=== PATIENT | female | born 1950 | race Caucasian/White ===

== ENCOUNTER → 2016-11-25 | Outpatient (REF) | payer OTHER ==
[2016-11-25 18:15] LABS: BASO % 0.4 % (0.0-1.0); EOS # 0.1 K/mm3 (0.0-0.50); EOS % 1.5 % (0.0-3.0); LARGE UNSTAINED CELL # 0.2 K/mm3 (0.0-0.4); LARGE UNSTAINED CELL % 1.9 % (0.0-4.0); LYMPH % 23.9 % (24.0-44.0); MEAN CORPUSCULAR HEMOGLOBIN 27.5 pg (27.0-33.0); MEAN CORPUSCULAR HGB CONC 33.2 g/dl (32.0-36.5); MONO # 0.4 K/mm3 (0.0-0.8); MONO % 5.4 % (0.0-5.0); NEUTROPHILS # 5.5 K/mm3 (1.8-7.7); PLATELET COUNT, AUTOMATED 286 k/mm3 (150-450); RED CELL DISTRIBUTION WIDTH 13.2 % (11.5-14.5); WHITE BLOOD COUNT 8.2 K/mm3 (4.0-10.0)
[2016-11-25 18:41] LABS: ALBUMIN 3.7 GM/DL (3.2-5.2); ALBUMIN/GLOBULIN RATIO 1.16 (1.00-1.93); ALKALINE PHOSPHATASE 69 U/L (45-117); ALT/SGPT 28 U/L (12-78); ANION GAP 9 MEQ/L (8-16); AST/SGOT 13 U/L (15-37); BILIRUBIN,TOTAL 0.3 MG/DL (0.2-1.0); BLOOD UREA NITROGEN 16 MG/DL (7-18); CALCIUM LEVEL 9.1 MG/DL (8.8-10.2); CARBON DIOXIDE LEVEL 28 MEQ/L (21-32); CHLORIDE LEVEL 104 MEQ/L (98-107); CREATININE FOR GFR 0.86 MG/DL (0.55-1.02); GLOMERULAR FILTRATION RATE > 60.0 (>45); GLUCOSE, FASTING 85 MG/DL (80-110); POTASSIUM SERUM 3.9 MEQ/L (3.5-5.1); SODIUM LEVEL 141 MEQ/L (136-145); TOTAL PROTEIN 6.9 GM/DL (6.4-8.2)
[2016-11-25 18:57] LABS: ERYTHROCYTE SEDIMENTATION RATE 24 mm/hr (0-30)
[2016-11-27 14:00] LABS: ALBUMIN 3.86 GM/DL (3.29-5.55); ALBUMIN % 55.9 % (55.8-66.1); GAMMA GLOBULIN % 13.9 % (11.1-18.8)
[2016-11-28 00:07] LABS: Lyme Disease IgG/IgM Antibodie <0.91 ISR (0.00-0.90); Lyme Disease IgM Ab Quantitati <0.80 index (0.00-0.79)
== END ==
LOC: M LABDRAW1 16:11
PROVIDERS: ATTEND Internal Medicine Rheumatology
DX: Z51.81 Encounter for therapeutic drug level monitoring (principal); Z79.899 Other long term (current) drug therapy; R53.83 Other fatigue; M05.79 Rheumatoid arthritis with rheumatoid factor of multiple sites without organ or systems involvement; D47.2 Monoclonal gammopathy

== ENCOUNTER → 2016-12-08 | Outpatient (REF) | payer OTHER | LOC: M SFHCPLAZ 11:03 | PROVIDERS: ATTEND Nurse Practitioner Adult Health | DX: R73.02 Impaired glucose tolerance (oral) (principal); E03.9 Hypothyroidism, unspecified; E55.9 Vitamin D deficiency, unspecified ==

== ENCOUNTER → 2017-03-09 | Outpatient (REF) | payer OTHER ==
[2017-03-09 11:52] LABS: ALBUMIN 3.3 GM/DL (3.2-5.2); ALKALINE PHOSPHATASE 66 U/L (45-117); ALT/SGPT 30 U/L (12-78); ANION GAP 8 MEQ/L (8-16); AST/SGOT 13 U/L (15-37); BILIRUBIN,TOTAL 0.3 MG/DL (0.2-1.0); BLOOD UREA NITROGEN 16 MG/DL (7-18); CALCIUM LEVEL 8.7 MG/DL (8.8-10.2); CARBON DIOXIDE LEVEL 29 MEQ/L (21-32); CHLORIDE LEVEL 105 MEQ/L (98-107); CREATININE FOR GFR 0.75 MG/DL (0.55-1.02); GLOMERULAR FILTRATION RATE > 60.0 (>45); GLUCOSE, FASTING 103 MG/DL (80-110); POTASSIUM SERUM 4.6 MEQ/L (3.5-5.1); SODIUM LEVEL 142 MEQ/L (136-145); TOTAL PROTEIN 6.6 GM/DL (6.4-8.2)
== END ==
LOC: M SFHCPLAZ 08:17
PROVIDERS: ATTEND Nurse Practitioner Adult Health
DX: R73.02 Impaired glucose tolerance (oral) (principal); E03.9 Hypothyroidism, unspecified; E55.9 Vitamin D deficiency, unspecified

== ENCOUNTER → 2017-05-05 | Outpatient (REF) | payer OTHER ==
[2017-05-05 14:36] LABS: BASO % 0.4 % (0.0-1.0); EOS # 0.2 K/mm3 (0.0-0.50); EOS % 2.9 % (0.0-3.0); LARGE UNSTAINED CELL # 0.1 K/mm3 (0.0-0.4); LYMPH # 2.1 K/mm3 (1.5-4.5); LYMPH % 26.1 % (24.0-44.0); MEAN CORPUSCULAR HEMOGLOBIN 28.7 pg (27.0-33.0); MEAN CORPUSCULAR HGB CONC 32.8 g/dl (32.0-36.5); MEAN CORPUSCULAR VOLUME 87.5 fl (80.0-96.0); MONO # 0.5 K/mm3 (0.0-0.8); MONO % 5.9 % (0.0-5.0); NEUTROPHILS % 63.7 % (36.0-66.0); PLATELET COUNT, AUTOMATED 260 k/mm3 (150-450); RED CELL DISTRIBUTION WIDTH 13.1 % (11.5-14.5); WHITE BLOOD COUNT 7.8 K/mm3 (4.0-10.0)
[2017-05-05 15:28] LABS: ALBUMIN 3.5 GM/DL (3.2-5.2); ALBUMIN/GLOBULIN RATIO 1.06 (1.00-1.93); ALKALINE PHOSPHATASE 65 U/L (45-117); ALT/SGPT 25 U/L (12-78); ANION GAP 8 MEQ/L (8-16); AST/SGOT 10 U/L (15-37); BILIRUBIN,TOTAL 0.3 MG/DL (0.2-1.0); BLOOD UREA NITROGEN 18 MG/DL (7-18); CALCIUM LEVEL 8.9 MG/DL (8.8-10.2); CARBON DIOXIDE LEVEL 30 MEQ/L (21-32); CHLORIDE LEVEL 104 MEQ/L (98-107); CREATININE FOR GFR 0.75 MG/DL (0.55-1.02); GLOMERULAR FILTRATION RATE > 60.0 (>45); GLUCOSE, FASTING 69 MG/DL (80-110); POTASSIUM SERUM 4.4 MEQ/L (3.5-5.1); SODIUM LEVEL 142 MEQ/L (136-145); TOTAL PROTEIN 6.8 GM/DL (6.4-8.2)
[2017-05-05 15:51] LABS: ERYTHROCYTE SEDIMENTATION RATE 26 mm/hr (0-30)
== END ==
LOC: M LABDRAWP 14:05
PROVIDERS: ATTEND Internal Medicine Rheumatology
DX: Z51.81 Encounter for therapeutic drug level monitoring (principal); Z79.899 Other long term (current) drug therapy; M05.79 Rheumatoid arthritis with rheumatoid factor of multiple sites without organ or systems involvement

== ENCOUNTER → 2017-06-04 | Outpatient (REF) | payer OTHER ==
[~2017-06-04] MED LIST: ASPI1TAB PO; FISH5CAP PO; FOLI1TAB4 PO; LEVO100T5 PO; METF750T PO; METH2.5TA PO; OMEP20CA3 PO; PROBCAP4 PO; VITA1CAP40 PO
[2017-06-04 14:37] LABS: BASO % 0.3 % (0.0-1.0); EOS # 0.5 K/mm3 (0.0-0.50); EOS % 4.1 % (0.0-3.0); LARGE UNSTAINED CELL # 0.1 K/mm3 (0.0-0.4); LARGE UNSTAINED CELL % 0.7 % (0.0-4.0); LYMPH # 1.2 K/mm3 (1.5-4.5); LYMPH % 9.6 % (24.0-44.0); MEAN CORPUSCULAR HEMOGLOBIN 28.6 pg (27.0-33.0); MEAN CORPUSCULAR HGB CONC 32.5 g/dl (32.0-36.5); MEAN CORPUSCULAR VOLUME 87.8 fl (80.0-96.0); MONO # 0.6 K/mm3 (0.0-0.8); MONO % 4.5 % (0.0-5.0); NEUTROPHILS # 9.7 K/mm3 (1.8-7.7); NEUTROPHILS % 80.7 % (36.0-66.0); PLATELET COUNT, AUTOMATED 316 k/mm3 (150-450); RED CELL DISTRIBUTION WIDTH 14.2 % (11.5-14.5)
[2017-06-04 15:06] LABS: ALBUMIN 3.4 GM/DL (3.2-5.2); ALT/SGPT 27 U/L (12-78); CREATININE FOR GFR 0.85 MG/DL (0.55-1.02); GLOMERULAR FILTRATION RATE > 60.0 (>45)
== END ==
LOC: M LABDRAWP 14:03
PROVIDERS: ATTEND Internal Medicine Rheumatology
DX: Z51.81 Encounter for therapeutic drug level monitoring (principal); Z79.899 Other long term (current) drug therapy; M05.79 Rheumatoid arthritis with rheumatoid factor of multiple sites without organ or systems involvement

== ENCOUNTER → 2017-06-04 | Outpatient (REF) | payer OTHER ==
[2017-06-04 15:10] LABS: ALBUMIN 3.4 GM/DL (3.2-5.2); ALBUMIN/GLOBULIN RATIO 0.89 (1.00-1.93); ALKALINE PHOSPHATASE 72 U/L (45-117); ALT/SGPT 25 U/L (12-78); ANION GAP 6 MEQ/L (8-16); AST/SGOT 9 U/L (15-37); BILIRUBIN,TOTAL 0.3 MG/DL (0.2-1.0); BLOOD UREA NITROGEN 16 MG/DL (7-18); CALCIUM LEVEL 9.5 MG/DL (8.8-10.2); CARBON DIOXIDE LEVEL 28 MEQ/L (21-32); CHLORIDE LEVEL 104 MEQ/L (98-107); CREATININE FOR GFR 0.83 MG/DL (0.55-1.02); GLOMERULAR FILTRATION RATE > 60.0 (>45); GLUCOSE, FASTING 115 MG/DL (80-110); POTASSIUM SERUM 4.5 MEQ/L (3.5-5.1); SODIUM LEVEL 138 MEQ/L (136-145); TOTAL PROTEIN 7.2 GM/DL (6.4-8.2)
== END ==
LOC: M SFHCPLAZ 08:36
PROVIDERS: ATTEND Nurse Practitioner Adult Health
DX: Z51.81 Encounter for therapeutic drug level monitoring (principal); Z79.899 Other long term (current) drug therapy; M05.9 Rheumatoid arthritis with rheumatoid factor, unspecified; R73.02 Impaired glucose tolerance (oral); E03.9 Hypothyroidism, unspecified

== ENCOUNTER → 2017-07-06 | Outpatient (CLI) | payer OTHER ==
[2017-07-06 21:32] LABS: ALBUMIN 3.6 GM/DL (3.2-5.2); ALT/SGPT 25 U/L (12-78); BASO % 0.3 % (0.0-1.0); CREATININE FOR GFR 0.72 MG/DL (0.55-1.02); EOS # 0.3 K/mm3 (0.0-0.50); EOS % 3.1 % (0.0-3.0); GLOMERULAR FILTRATION RATE > 60.0 (>45); LARGE UNSTAINED CELL # 0.1 K/mm3 (0.0-0.4); LARGE UNSTAINED CELL % 1.3 % (0.0-4.0); LYMPH # 2.4 K/mm3 (1.5-4.5); LYMPH % 24.6 % (24.0-44.0); MEAN CORPUSCULAR HEMOGLOBIN 28.4 pg (27.0-33.0); MEAN CORPUSCULAR HGB CONC 31.8 g/dl (32.0-36.5); MEAN CORPUSCULAR VOLUME 89.4 fl (80.0-96.0); MONO # 0.6 K/mm3 (0.0-0.8); MONO % 5.9 % (0.0-5.0); NEUTROPHILS % 64.8 % (36.0-66.0); PLATELET COUNT, AUTOMATED 294 k/mm3 (150-450); RED CELL DISTRIBUTION WIDTH 15.6 % (11.5-14.5); WHITE BLOOD COUNT 9.3 K/mm3 (4.0-10.0)
== END ==
LOC: M LRY 16:19
PROVIDERS: ATTEND Internal Medicine Rheumatology
DX: M05.79 Rheumatoid arthritis with rheumatoid factor of multiple sites without organ or systems involvement (principal); Z79.899 Other long term (current) drug therapy

== ENCOUNTER → 2017-08-03 | Outpatient (CLI) | payer OTHER ==
[2017-08-03 21:02] LABS: BASO % 0.3 % (0.0-1.0); EOS # 0.3 K/mm3 (0.0-0.50); EOS % 2.8 % (0.0-3.0); LARGE UNSTAINED CELL # 0.2 K/mm3 (0.0-0.4); LARGE UNSTAINED CELL % 2.1 % (0.0-4.0); LYMPH # 2.5 K/mm3 (1.5-4.5); LYMPH % 27.1 % (24.0-44.0); MEAN CORPUSCULAR HEMOGLOBIN 28.9 pg (27.0-33.0); MEAN CORPUSCULAR HGB CONC 32.2 g/dl (32.0-36.5); MEAN CORPUSCULAR VOLUME 89.7 fl (80.0-96.0); MONO # 0.5 K/mm3 (0.0-0.8); MONO % 5.7 % (0.0-5.0); NEUTROPHILS # 5.6 K/mm3 (1.8-7.7); NEUTROPHILS % 61.9 % (36.0-66.0); PLATELET COUNT, AUTOMATED 331 k/mm3 (150-450); RED CELL DISTRIBUTION WIDTH 15.5 % (11.5-14.5); WHITE BLOOD COUNT 9.1 K/mm3 (4.0-10.0)
[2017-08-03 21:07] LABS: ALBUMIN 3.6 GM/DL (3.2-5.2); ALT/SGPT 28 U/L (12-78); CREATININE FOR GFR 0.64 MG/DL (0.55-1.02); GLOMERULAR FILTRATION RATE > 60.0 (>45)
== END ==
LOC: M LRY 16:19
PROVIDERS: ATTEND Internal Medicine Rheumatology
DX: Z51.81 Encounter for therapeutic drug level monitoring (principal); Z79.899 Other long term (current) drug therapy; M05.79 Rheumatoid arthritis with rheumatoid factor of multiple sites without organ or systems involvement

== ENCOUNTER → 2017-09-14 | Outpatient (CLI) | payer OTHER ==
[2017-09-14 20:27] LABS: ALBUMIN 3.6 GM/DL (3.2-5.2); ALT/SGPT 33 U/L (12-78); CREATININE FOR GFR 0.71 MG/DL (0.55-1.02); GLOMERULAR FILTRATION RATE > 60.0 (>45)
[2017-09-14 20:46] LABS: BASO # 0.1 10^3/uL (0.0-0.2); BASO % 0.5 % (0.0-1.0); EOS # 0.2 10^3/uL (0.0-0.50); EOS % 2.3 % (0.0-3.0); IMMATURE GRANULOCYTE % 0.3 % (0-0); LYMPH # 2.4 10^3/uL (1.5-4.5); LYMPH % 23.3 % (24.0-44.0); MEAN CORPUSCULAR HEMOGLOBIN 28.6 pg (27.0-33.0); MEAN CORPUSCULAR HGB CONC 31.1 g/dl (32.0-36.5); MEAN CORPUSCULAR VOLUME 91.9 fl (80.0-96.0); MONO # 0.9 10^3/uL (0.0-0.8); MONO % 8.3 % (0.0-5.0); NEUTROPHILS # 6.8 10^3/uL (1.8-7.7); NEUTROPHILS % 65.3 % (36.0-66.0); PLATELET COUNT, AUTOMATED 323 10^3/uL (150-450); RED CELL DISTRIBUTION WIDTH 15.1 % (11.5-14.5); WHITE BLOOD COUNT 10.4 10^3/uL (4.0-10.0)
== END ==
LOC: M LRY 16:21
PROVIDERS: ATTEND Internal Medicine Rheumatology
DX: Z51.81 Encounter for therapeutic drug level monitoring (principal); Z79.899 Other long term (current) drug therapy; M05.79 Rheumatoid arthritis with rheumatoid factor of multiple sites without organ or systems involvement

== ENCOUNTER 2017-10-08 07:36 | Inpatient (IN) | payer OTHER, MEDICARE ==
[2017-09-24 11:33] VITALS: BP 130/80
--- NOTE | 2017-09-30 12:24 | HPE ---
DATE OF ADMISSION: 10/08/2017 HISTORY OF PRESENT ILLNESS: This is a pleasant female with continuing symptomatic right hip osteoarthritis. She has consented for right total hip arthroplasty per Dr. Hayder Asher. Medical optimization per Dr. Tsang, and x-rays are consistent with advanced osteoarthritis. ALLERGIES: PENICILLIN caused her some breathing issues when she was young, and in addition, BEE STINGS. MEDICATIONS: List includes: - omeprazole 20 mg - hydroxychloroquine sulfate 200 mg - levothyroxine sodium 100 mcg - aspirin low 81 mg - vitamin D 50,000 units - Metformin HCl ER 750 mg - fish oil burpless 1200 mg - Probiotic daily MEDICAL PROBLEM LIST: Includes symptomatic right hip osteoarthritis, gastroesophageal reflux disease. Hypothyroidism. FAMILY HISTORY: Positive for heart disease, arthritis, hypercholesteremia, cancer and diabetes. SOCIAL HISTORY: She is a former smoker. She denies ethanol intake or illicit drugs. REVIEW OF SYSTEMS: Denies chest pain, shortness of breath, dyspnea on exertion, fever, chills, malaise, upper respiratory or urinary tract symptoms. PHYSICAL EXAMINATION: Height 5, 4. Weight 223. Temperature 98.6. Blood pressure (BP) 158/78. This is a pleasant, overweight white female in no acute distress, alert and oriented times three. Mood and affect are appropriate. She is ambulating with favoring left lower extremity and antalgia about the right. Right hip range of motion is limited and irritable throughout range of motion. Bowel sounds times four, soft, nontender. Chest rises symmetrically, regular rate and rhythm. Lungs clear to auscultation. Neck supple. Negative jugular venous distention (JVD) or bruits. Normocephalic. Labs were reviewed. There was Corynebacterium noted on urine culture, and therefore, we proceeded to prescribe her prophylactic Hibiclens Bactroban wash. Nasal sinus culture was normal kiara present. Urine culture showed Corynebacterium bacteria, colony count 75,000. Remaining labs relatively unremarkable. ESR 43. Chest x-ray showed no acute cardiopulmonary process. EKG showed sinus rhythm with occasional ventricular premature complexes with occasional supraventricular premature complexes as read by Dr. Barroso. Consent was updated. IMPRESSION: 1. Continuing symptomatic right hip osteoarthritis. 2. Patient consented for right total hip arthroplasty per Dr. Hayder Asher. 3. Medical optimization per Dr. Ahsan Tsang. 4. On-call to operating room (OR) 600 mg intravenous (IV) clindamycin per prior history of PENICILLIN ALLERGY. 5. Sequential compressive device (SCD) and thromboembolic deterrent (JENNI) in OR .
[~2017-10-08] VITALS: Ht 165.1 cm; Wt 100.4 kg
[2017-10-08] VITALS (9 sets, daily range): BP systolic 155–186; BP diastolic 60–75; O2SAT 94–96
[2017-10-08] MEDS ORDERED: LR 1,000 ML IV SCH ×3 (07:45→11:45)
[2017-10-08] MEDS ORDERED: CLINDAMYCIN 600 MG in APPROPRIATE DILUENT 1 EA IV ONE (08:00)
[2017-10-08] MEDS ORDERED: fentaNYL 100 MCG/2 ML INJECTION (J3010) As Ordered ONE (08:28)
[2017-10-08] MEDS ORDERED: PROPOFOL 200 MG/20 ML VIAL As Ordered ONE ×2 (08:28→10:55)
[2017-10-08] MEDS ORDERED: LIDOCAINE 2% INJ 100 MG/5 ML SDV (FOR ANES.) As Ordered ONE (08:28)
[2017-10-08] MEDS ORDERED: MIDAZOLAM INJ 2 MG/2 ML VIAL (J2250) As Ordered ONE (08:28)
[2017-10-08] MEDS ORDERED: CLINDAMYCIN INJ 900MG/6ML VIAL As Ordered ONE (08:54)
[2017-10-08] MEDS ORDERED: TRANEXAMIC ACID 100 MG/ML 10ML VIAL As Ordered ONE (08:54)
[2017-10-08] MEDS ORDERED: EPINEPHrine INJ 1 MG/ML 1ML AMP As Ordered ONE (08:54)
--- NOTE | 2017-10-08 10:22 | HPE ---
DATE OF ADMISSION: 10/08/2017 The patient seen, examined. She wished to go ahead with the right total hip arthroplasty. She understands the nature this the risks of bleeding, infection, damage to nerves, vessels, persistent pain, wear loosening, dislocation, leg length inequality, blood clots, medical problems, among others. She wished to proceed. A preop clearance was obtained.
[2017-10-08] MEDS ORDERED: CLINDAMYCIN 600 MG/50 ML PREMIX BAG As Ordered ONE (10:25)
[2017-10-08] MEDS ORDERED: HYDROmorphone HCL 1 MG/ML SYRINGE (J1170) IV PRN (11:45)
[2017-10-08] MEDS ORDERED: ONDANSETRON 4MG/2ML VIAL (J2405) IV PRN ×3 (11:45→12:00)
[2017-10-08] MEDS ORDERED: fentaNYL 100 MCG/2 ML INJECTION (J3010) IV PRN (11:45)
[2017-10-08] MEDS ORDERED: PERCOCET 5MG/325MG TAB PO PRN (11:45)
[2017-10-08] MEDS ORDERED: GLUCOSE 4 GM CHEW TABLET PO PRN (11:45)
[2017-10-08] MEDS ORDERED: GLUCAGON FOR INJ 1 MG VIAL (J1610) SC PRN (11:45)
[2017-10-08] MEDS ORDERED: DEXTROSE 50% 50 ML SYRINGE IV PRN (11:45)
[2017-10-08] MEDS ORDERED: ACETAMINOPHEN TAB 650MG DOSE (2X325MG) PO PRN (12:00)
[2017-10-08] MEDS ORDERED: NALBUPHINE HCL 10 MG/ML AMP (J2300) IV PRN (12:00)
[2017-10-08] MEDS: HumaLOG INSULIN (NovoLOG) PER UNIT SC SCH ×3 (12:00→21:00)
[2017-10-08] MEDS ORDERED: NALOXONE INJ 0.4 MG/1 ML VIAL (J2310) IV PRN (12:00)
[2017-10-08] MEDS ORDERED: EPIDURAL/PCA KEYS XX PRN (12:00)
[2017-10-08] MEDS ORDERED: MORPHINE 1MG/ML IN 0.9% NACL 100ML IV BAG IV PRN (12:00)
[2017-10-08] MEDS: LR 1,000 ML IV SCH ×2 (12:00→21:46)
[2017-10-08] MEDS ORDERED: FLEET ENEMA PR PRN (12:00)
[2017-10-08] MEDS ORDERED: diphenhydrAMINE INJ 50MG/ML VIAL (J1200) IV PRN (12:00)
--- NOTE | 2017-10-08 13:28 | CR ---
DATE OF CONSULTATION: 10/08/2017 REASON FOR CONSULTATION: Management of chronic medical issues. ORTHOPEDIC SURGEON: Hayder Asher MD CHIEF COMPLAINT: Right hip arthroplasty due to degenerative disc disease. PRIMARY CARE PHYSICIAN: Ahsan Tsang MD HISTORY OF PRESENT ILLNESS: This is a 67-year-old female with prior history significant for hypothyroidism, hypercholesterolemia, vitamin D deficiency, hypertension, kidney stones in 1992, history of tobacco abuse, smokes 30 years, one pack a day, quit 06/19/2010, glucose intolerance, CT of the neck 2013 negative for thyroid nodule, diverticulosis, small polyps hyperplastic. ALLERGIES: 1. PENICILLIN. 2. Bees. PAST SURGICAL HISTORY: Appendectomy. Tubal ligation. Total right knee. FAMILY HISTORY: Father age 55 of coronary artery disease/myocardial infarction. Mother age 84, colon cancer. Brother times two, 69 years old and 72 years old. One had a CVA 2 years ago, stopped his medications. Other brother doesn't got to a physician. Sister age 60, involved in an MVA in 1994 with paralysis and wheelchair. Patient has four children, a son in [place], three daughters, one in [place], [place] and [place]. Denies family history of any skin cancer. Patient is former smoker, last smoked about 5-10 years ago. Patient socially drinks 1-2 on a typical day and 1-2 cups of coffee. 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 Currently . REVIEW OF SYSTEMS: Per history of present illness. 12 point system otherwise negative. Patient presented for right total hip replacement due to limitations of her activities of daily living due to severe osteoarthritis. The patient has failed conservative management as an outpatient. She otherwise denies any prior history of CAD, NE, congestive heart failure (CHF), denies any fever, chills, weight gain, weight loss, changes in appetite, changes in vision, rhinorrhea, dysuria, urgency or frequency, shortness of breath, chest pain, pressure, tightness, palpitations, lightheadedness or dizziness. Denies any pleuritic chest pain, cough productive of sputum, upper respiratory infections, bright red blood per rectum, melena, black tarry stools, upper or lower extremity weakness, depression or anxiety. All other systems are otherwise negative. PHYSICAL EXAMINATION: Height 5 feet 4 inches tall. Body mass index (BMI) of 38.51. Temperature 99.3. Pulse 88. Respiratory rate 20. Blood pressure 176/78. 98% on room air. Generally, patient is awake, alert and oriented times three, answering questions appropriately. Pupils are round and reactive. Extraocular muscles are intact. Normocephalic, atraumatic. No cervical lymphadenopathy or thyromegaly. No cyanosis. No icterus or jaundice. Moist mucous membranes. No nasal flaring or tracheal deviation. Speaks in full sentences. No respiratory accessory muscle use. Lungs are clear to auscultation. No wheezing, rales or rhonchi. Heart S1 and S2, sinus rhythm. Abdomen is soft, nontender, nondistended. Positive bowel sounds times four quadrants. No rebound, guarding or hepatosplenomegaly. Extremities right total hip postop changes. No pitting edema or cyanosis. LABORATORY DATA: On 09/24/2017 white count 8.5, hemoglobin 12, hematocrit 40, platelet count 336, sodium 141, potassium 4.4, chloride 102, bicarb 32, BUN 10, creatinine 0.57, glucose of 77, previous A1c was 6.3 on 06/04/2017. Microbiology: 09/24 Corynebacterium species. Chest x-ray 09/24/2017 negative PA and lateral chest. No interval change. ASSESSMENT/PLAN: This is a 67-year-old female with past medical history significant for hypothyroidism, hypercholesterolemia, vitamin D deficiency, history of kidney stones, postmenopausal, tobacco abuse, glucose intolerance, vitamin D deficiency, diverticulosis and hyperplastic polyps, appendectomy, tubal ligation, total right knee, who presents for right total hip replacement due to severe osteoarthritis (OA). Patient underwent total hip arthroplasty with no significant adverse sequelae. Hospitalist service was consulted for management of chronic issues. Current issues are: 1. Right total hip replacement. Deep vein thrombosis (DVT) prophylaxis, pain management and bowel regimen per primary team, Dr. Hayder Asher, orthopedic surgery, physical therapy, occupational therapy, physical medicine and rehabilitation, pain control. 2. History of type 2 diabetes on metformin. Patient is on a consistent carbohydrate diet. Insulin sliding scale. May resume metformin in the morning once the patient is back to baseline. 3. Hypothyroidism. Check TSH. Continue home dose of levothyroxine. 4. Reflux disease. Continue on omeprazole. 5. Hypercholesterolemia. Check lipid panel in the morning. Continue with fish oil home dose. 6. Prior history of smoking. No history of chronic obstructive pulmonary disease (COPD). 7. Social alcohol use. No more than 2 drinks daily. 8. Hyperplastic polyps. No acute complaints. 9. History of diverticulosis. No overt signs of bleeding. 10. Deep vein thrombosis (DVT) prophylaxis per primary team. Orthopedic surgery for total hip replacement, with Coumadin. Check INR daily.
--- NOTE | 2017-10-08 16:17 | RO ---
DATE OF PROCEDURE: 10/08/2017 PREOPERATIVE DIAGNOSIS: Right hip. POSTOPERATIVE DIAGNOSIS: Right hip. PROCEDURE: Right total hip arthroplasty using a Chowan DePuy size 4 standard, +536 ball with a 52 cup, standard polyethylene. SURGEON: Hayder Asher MD CATH LAB TECH: TONY Molina ANESTHESIA: Spinal. ESTIMATED BLOOD LOSS: 200 COMPLICATIONS: None. INDICATIONS: This is a 67-year woman has had some persistent hip pain secondary arthritis. She failed conservative management and wished to go ahead with surgical treatment. She has advanced arthritis on x-ray. She understood the nature this, the risks of bleeding, infection, damage to nerves, vessels, persistent pain, wear loosening, dislocation, leg length inequality, blood clots, medical problems, , among others. DESCRIPTION OF PROCEDURE: The patient taken to the operating room and placed in supine position. After spinal anesthesia was induced, she was then turned a left lateral decubitus position on a Jose E positioner. The right hip was prepped and draped in usual sterile fashion. We had padded all areas appropriately. A time-out was performed and I created a longitudinal incision over the lateral aspect the hip. She had copious subcutaneous tissues so this iliotibial (IT) band was quite deep, which made this case much more challenging. I incised the fascia aniya longitudinally, divided the anterior 40% of the abductor off of the hip as we gradually externally rotated exposing the femur and dislocating the head. I then used a canal initiating reamer, followed by the canal finding reamer, lateralizing reamer and sequentially reamed up to a size 4, which had good bony purchase. This was sized that was templated to. Then, I used a saw to cut the neck off at about a half a finger (dictation cut off). I then directed our attention to the acetabulum. Anterior posterior retractors were placed. I removed soft tissue from around the acetabulum and the deep portion of the acetabulum. I then sequentially reamed up to a size 51, which had good bleeding bone and good concentric reaming. I irrigated copiously, impacted in a 52 cup in the appropriate amount of anteversion and horizontal tilt. I made sure it was well seated. Carolina hole eliminator was placed. The polyethylene liner was impacted in place, size 32 x 52. We made sure this was seated. We irrigated multiple times. I then directed attention to the femoral shaft and broached up to a size 4, which had excellent fit. I did use the calcar planer, smoothed this off and used the trial neck standard +1.5 and +5, and I was more satisfied with a +5 in terms of stability, soft tissue tension. Excellent stability in extension external rotation, flexion internal rotation. I did remove some osteophytes from around the anterior portion of the acetabulum. We then this irrigated the canal carefully and the remaining wound carefully and impacted in size 4 standard [place] stem. Made sure it was well seated. I put the 5 x 36 ball on, impacted this in place over a dry taper and then we reduced the hip with the bilingual administrative assistant's help. I put the hip through range of motion. Again, very pleased with the stability and soft tissue tension and position. Copious irrigation was performed. I repaired the minimus with #1 Vicryl suture. The tranexamic acid (TXA) solution was inserted and the deep layer was then repaired with #1 Vicryl suture with some stitches being placed through the bone. Excellent repair was noted. I again irrigated, repaired the fascia aniya with interrupted #1 Vicryl suture in a running Stratafix suture in each direction. Watertight closure was obtained. We irrigated again. She did have significant copious, almost watery fatty tissue, which is irrigated. I used a #0 Stratafix suture in the mid layer of the adipose tissue to reapproximate this and close down the space. I closed subcu with #2-0 Vicryl with the bilingual administrative assistant's help and the skin with deven. Sterile dressing was applied, and she was taken to recovery room in stable condition. There no known complications. The plan be routine post-op. The bilingual administrative assistant was instrumental in holding retractors and assisting in reducing and dislocating the hip and assisting in wound closure. This was coded as an unusually difficult case due to the patient's morbid obesity with her body mass index (BMI) in the high 30s and her significant adipose tissue and deep wound, which made this a much more challenging and time consuming case then would have otherwise been the situation.
[2017-10-08] MEDS ORDERED: WARFARIN SOD 5 MG TAB PO ONE (17:00)
[2017-10-08] MEDS: OMEGA-3 1050MG CAPSULE PO SCH (17:30)
[2017-10-08] MEDS: CLINDAMYCIN 900 MG in APPROPRIATE DILUENT 1 EA IV SCH (18:00)
[2017-10-09] VITALS (7 sets, daily range): BP systolic 142–181; BP diastolic 58–76
[2017-10-09] MEDS: CLINDAMYCIN 900 MG in APPROPRIATE DILUENT 1 EA IV SCH (02:26)
[2017-10-09] MEDS: LEVOTHYROXINE 100MCG TABLET (0.1MG) PO SCH (05:59)
[2017-10-09 06:25] LABS: BASO % 0.2 % (0.0-1.0); EOS % 0.1 % (0.0-3.0); IMMATURE GRANULOCYTE % 0.3 % (0-0); LYMPH # 0.8 10^3/uL (1.5-4.5); LYMPH % 5.7 % (24.0-44.0); MEAN CORPUSCULAR HEMOGLOBIN 28.4 pg (27.0-33.0); MEAN CORPUSCULAR HGB CONC 30.9 g/dl (32.0-36.5); MEAN CORPUSCULAR VOLUME 91.9 fl (80.0-96.0); MONO # 0.9 10^3/uL (0.0-0.8); MONO % 7.1 % (0.0-5.0); NEUTROPHILS # 11.5 10^3/uL (1.8-7.7); NEUTROPHILS % 86.6 % (36.0-66.0); PLATELET COUNT, AUTOMATED 299 10^3/uL (150-450); RED CELL DISTRIBUTION WIDTH 14.6 % (11.5-14.5); WHITE BLOOD COUNT 13.3 10^3/uL (4.0-10.0)
[2017-10-09 06:37] LABS: INR 1.11
[2017-10-09] MEDS ORDERED: CANDESARTAN 4MG TABLET PO ONE (06:45)
[2017-10-09 06:56] LABS: ANION GAP 7 MEQ/L (8-16); BLOOD UREA NITROGEN 10 MG/DL (7-18); CALCIUM LEVEL 8.4 MG/DL (8.8-10.2); CARBON DIOXIDE LEVEL 30 MEQ/L (21-32); CHLORIDE LEVEL 102 MEQ/L (98-107); CHOLESTEROL LEVEL 193 MG/DL (<200); CREATININE FOR GFR 0.78 MG/DL (0.55-1.02); GLOMERULAR FILTRATION RATE > 60.0 (>45); GLUCOSE, FASTING 151 MG/DL (80-110); POTASSIUM SERUM 4.1 MEQ/L (3.5-5.1); SODIUM LEVEL 139 MEQ/L (136-145); TRIGLYCERIDES LEVEL 98 MG/DL (<150)
[2017-10-09] MEDS ORDERED: PERCOCET 5MG/325MG TAB PO PRN (07:00)
[2017-10-09] MEDS ORDERED: ONDANSETRON 4 MG TAB (S0181) PO PRN (07:00)
--- NOTE | 2017-10-09 08:48 | REP ---
Clinical: Status post arthroplasty. Technique: AP and cross-table lateral views. Findings: The patient is status post right hip replacement with normal positioning and appearance to the femoral and acetabular components. Overlying postsurgical changes appreciated. Impression: Satisfactory right hip replacement radiographs. Signed by Drew Parks MD 10/09/2017 08:40 A
[2017-10-09] MEDS: HumaLOG INSULIN (NovoLOG) PER UNIT SC SCH ×4 (09:23→21:00)
[2017-10-09] MEDS: MOM 30ML SUSPENSION UDC PO SCH (09:23)
[2017-10-09] MEDS: FOLIC ACID 1 MG TAB PO SCH ×2 (09:24→09:42)
[2017-10-09] MEDS: SENOKOT S TAB PO SCH ×2 (09:24→19:33)
[2017-10-09] MEDS: LACTOBACILLUS ACIDOPHILUS CAP (BACID) PO SCH (09:24)
[2017-10-09] MEDS: OMEPRAZOLE 20 MG CAP PO SCH (09:24)
[2017-10-09] MEDS: MIRALAX *UNIT DOSE* 17GM PACKET PO SCH (09:24)
[2017-10-09] MEDS: PERCOCET 5MG/325MG TAB PO PRN ×3 (09:25→19:33)
[2017-10-09 16:16] LABS: ABG BASE EXCESS -2.3 (-2.0-2.0); ABG HCO3 22.2 MEQ/L (22.0-26.0); ABG PARTIAL PRESSURE CO2 36.9 mmHg (35.0-45.0); ABG PARTIAL PRESSURE O2 104.2 mmHg (75.0-100.0); ABG STANDARD HCO3 22.6 MEQ/L (22.0-26.0); ABG TOTAL CO2 23.3 MEQ/L (23.0-31.0); ABG pH (ARTERIAL) 7.397 UNITS (7.350-7.450)
--- NOTE | 2017-10-09 16:40 | REP ---
Clinical: Hypoxia . Comparison: 09/24/2017 . Findings: The mediastinum and cardiac silhouette are stable and within normal limits for portable technique. The lung fitzpatrick are clear without acute consolidation, effusion, or pneumothorax. Skeletal structures are intact. Impression: No acute cardiopulmonary process appreciated. Signed by Drew Parks MD 10/09/2017 04:31 P
[2017-10-09] MEDS ORDERED: WARFARIN SOD 5 MG TAB PO ONE (17:00)
[2017-10-09] MEDS ORDERED: ISOVUE-370 76% 100ML VIAL (Q9967) As Ordered ONE (17:11)
[2017-10-09] MEDS: OMEGA-3 1050MG CAPSULE PO SCH (17:28)
[2017-10-09] MEDS ORDERED: MORPHINE 2 MG/ML 1ML SYRINGE IV ONE (17:30)
--- NOTE | 2017-10-09 18:42 | IPN ---
DATE: 10/09/2017 Patient seen and examined at bedside. Chart has been reviewed. Patient was noted to have increasing blood pressure 160-180. Patient refusing medications at this time and states that she has white coat hypertension. She otherwise denies any chest pain, pressure, tightness, shortness of breath, lightheadedness, dizziness , changes in vision. Patient was also found to be hypoxic around 82% requiring supplemental oxygen. Patient denies any cough, fevers or chills. Her arterial blood gas was normal. Chest x-ray showed no infiltrate or pulmonary edema. PHYSICAL EXAMINATION: VITAL SIGNS: Temperature 99.2, pulse 86, respiratory rate 18, blood pressure 164/74, 90% 2 liters nasal cannula. GENERAL: Awake, alert, and oriented times three. Answering questions appropriately. LUNGS: Clear to auscultation. No wheezes, rales or rhonchi. HEART: S1, S2 sinus rhythm. ABDOMEN: Soft and nontender and nondistended. Positive bowel sounds. EXTREMITIES: Postop right hip. No cyanosis, clubbing or any pitting edema. Chest x-ray no acute cardiopulmonary process. Arterial blood gas reviewed. ASSESSMENT AND PLAN: 67-year-old female with history of rheumatoid arthritis, hypercholesterolemia, hypothyroidism, vitamin D deficiency. Quit smoking in 2009 , glucose intolerance presents for right total hip arthroplasty due to osteoarthritic felt to have postop hypoxia, 82% on room air requiring 2 liters of oxygen with no complaints Current issues are as follows: 1. Hypoxia. Differential diagnoses include PE, pneumonia, fluid overload, atelectasis, reactive airway disease. will obtain ABG, CXR, and if needed CT chest to rule out PE. Nebs and supplemental oxygen for symptomatic relief. encourage Incentive spirometry. At this timepatient is not exhibiting any signs or symptoms or pneumonia. No fevers orchills. No consolidation. Despite slight elevation in white count which is most likely reactive,as she has had no cough. Patient also does not have a prior history of congestive heart failure. No significant fluid overload or positive balance over the past 24 hours. No pulmonary edema on x-ray. Lung auscultation is clear. Patient may also have a probable pulmonary embolism as she has recently had orthopedic surgery with hypoxia at 82% on room air. We will check a CT of the chest, PE protocol. If negative, check nocturnal oxymetry to rule out obstructive sleep apnea. 2. Right total hip replacement secondary to osteoarthritis. Post-op management per orthopedic surgery. DVT prophylaxis, pain management and bowel regimen. Physical therapy and PMR consult. 3. Type 2 diabetes on Metformin on consistent carbohydrate diet, insulin sliding scale. May resume metformin after 24 hours following intravenous (IV) contrast. 4. Hypothyroidism. Continue levothyroxine. 5. Reflux on Prilosec. 6. Hypercholesterolemia. Continue Fish oil. 7. Prior history of smoking. No history of COPD. Quit in 2009. Social alcohol use. Drinks 2 drinks daily. 8. History of diverticulosis. No overt signs of bleeding. MTDD
--- NOTE | 2017-10-09 19:09 | REP ---
CT ANGIOGRAM OF THE CHEST: TECHNIQUE: Axial contrast enhanced images from the thoracic inlet to the upper abdomen using 100 mL Isovue 370 intravenous contrast material with multiplanar reformations. There is no CT evidence of pulmonary embolism. There is no thoracic aortic aneurysm or dissection. No mediastinal, hilar, or chest wall lymphadenopathy is seen. The heart is not enlarged and there is no pleural or pericardial effusion. Tiny calcified granuloma is seen in the right middle lobe. In the left lower lobe there is bandlike atelectasis in the costophrenic angle. There is diffuse fatty infiltration of the liver. IMPRESSION: No CT evidence of pulmonary embolism. Signed by Sergo Russell MD 10/09/2017 08:12 P
[2017-10-10] MEDS: PERCOCET 5MG/325MG TAB PO PRN ×2 (02:57→08:48)
[2017-10-10] MEDS: LEVOTHYROXINE 100MCG TABLET (0.1MG) PO SCH (05:38)
[2017-10-10 06:00] VITALS: BP 148/68
[2017-10-10 06:12] LABS: BASO % 0.1 % (0.0-1.0); EOS # 0.1 10^3/uL (0.0-0.50); EOS % 0.6 % (0.0-3.0); IMMATURE GRANULOCYTE % 0.6 % (0-0); LYMPH # 1.1 10^3/uL (1.5-4.5); LYMPH % 7.8 % (24.0-44.0); MEAN CORPUSCULAR HEMOGLOBIN 28.2 pg (27.0-33.0); MEAN CORPUSCULAR HGB CONC 30.4 g/dl (32.0-36.5); MEAN CORPUSCULAR VOLUME 92.7 fl (80.0-96.0); MONO # 1.1 10^3/uL (0.0-0.8); MONO % 7.8 % (0.0-5.0); NEUTROPHILS # 12.1 10^3/uL (1.8-7.7); NEUTROPHILS % 83.1 % (36.0-66.0); PLATELET COUNT, AUTOMATED 269 10^3/uL (150-450); RED CELL DISTRIBUTION WIDTH 14.6 % (11.5-14.5); WHITE BLOOD COUNT 14.6 10^3/uL (4.0-10.0)
[2017-10-10 06:23] LABS: INR 1.33
[2017-10-10 06:36] LABS: ANION GAP 4 MEQ/L (8-16); BLOOD UREA NITROGEN 8 MG/DL (7-18); CALCIUM LEVEL 8.6 MG/DL (8.8-10.2); CARBON DIOXIDE LEVEL 33 MEQ/L (21-32); CHLORIDE LEVEL 101 MEQ/L (98-107); CREATININE FOR GFR 0.63 MG/DL (0.55-1.02); GLOMERULAR FILTRATION RATE > 60.0 (>45); GLUCOSE, FASTING 131 MG/DL (80-110); POTASSIUM SERUM 4.1 MEQ/L (3.5-5.1); SODIUM LEVEL 138 MEQ/L (136-145)
[2017-10-10] MEDS ORDERED: LEVALBUTEROL 1.25 MG/0.5 ML CONCENTRATE NEB INH PRN (06:45)
[2017-10-10] MEDS: HumaLOG INSULIN (NovoLOG) PER UNIT SC SCH ×4 (07:30→20:54)
[2017-10-10] MEDS: LEVALBUTEROL 1.25 MG/0.5 ML CONCENTRATE NEB INH SCH ×4 (08:01→19:00)
[2017-10-10] MEDS: SENOKOT S TAB PO SCH ×2 (08:46→20:53)
[2017-10-10] MEDS: OMEPRAZOLE 20 MG CAP PO SCH (08:48)
[2017-10-10] MEDS: CANDESARTAN 4MG TABLET PO SCH (08:48)
[2017-10-10] MEDS: LACTOBACILLUS ACIDOPHILUS CAP (BACID) PO SCH (08:49)
[2017-10-10] MEDS: MOM 30ML SUSPENSION UDC PO SCH (08:50)
[2017-10-10] MEDS: MIRALAX *UNIT DOSE* 17GM PACKET PO SCH (08:50)
[2017-10-10] MEDS ORDERED: traMADol 50 MG TAB PO PRN (12:00)
[2017-10-10] MEDS: traMADol 50 MG TAB PO PRN (13:03)
[2017-10-10 14:00] VITALS: BP 111/57
[2017-10-10] MEDS: ACETAMINOPHEN 500 MG TAB PO SCH ×2 (14:15→20:53)
--- NOTE | 2017-10-10 15:05 | IPN ---
DATE OF SERVICE: 10/10/2017 Patient seen and examined at bedside. Chart has been reviewed. Patient refuses to take blood pressure medications, states that she has white coat hypertension. Hypoxia yesterday was evaluated. CT of the chest showed no pulmonary embolism (PE), edema or pneumonia. Patient was encouraged to use her incentive spirometry and continue with nebulizer treatments as needed. No active wheezing at this time. Patient has no complaints this morning aside from hip pain, 7 out of 10 on a pain scale. T-max 99.6, current temperature 97.3, pulse 77, respiratory rate 18, blood pressure 148/68, 96% on 2 liters nasal cannula. GENERAL: Awake, alert, and oriented times three. Answering questions appropriately. No nasal flaring, or cyanosis. No jugular venous distention (JVD). LUNGS: Clear to auscultation. No wheezes, rales or rhonchi. HEART: S1, S2 sinus rhythm. ABDOMEN: Soft, obese, nontender and nondistended. EXTREMITIES: Postop right hip. No pitting edema. LABORATORY DATA: CBC and metabolic panel have been reviewed. CT shows no PE, effusion, or pneumonia. ASSESSMENT AND PLAN: This is a 67-year-old female with history of rheumatoid arthritis, hypertension, hypothyroidism, vitamin D deficiency. Quit smoking in 2009, glucose intolerance presents for right total hip arthroplasty due to severe osteoarthritis with limitations with activities of daily living. Per nursing yesterday patient was desaturating at 82% on room air sitting and not ambulating. Patient, however, sees that she has no chest pain, pressure, tightness, or shortness of breath. Imaging studies: CT chest performed was negative for PE, edema, or consolidation. Nebulizer treatments were given. Patient has had resolution of her hypoxia and encouraged to use her incentive spirometry. IMPRESSION: 1. Hypoxia, resolved. As needed nebulizer and spirometry. CT chest showed no PE, edema, or consolidation. No empiric antibiotics. On Lasix. 2. Right total hip replacement secondary to osteoarthritis. Post-op management per orthopedic surgery. DVT prophylaxis, pain management and bowel regimen. Physical therapy and PMR. Patient has 16 steps to go up in her apartment. 3. Type 2 diabetes on Metformin on consistent carbohydrate diet. Metformin may be resumed [address] of the chest has been performed. Continue sliding scan and consistent carbohydrate diet. 4. Hypertension, uncontolled. Patient refusing to take medications stating that she has white coat hypertension. Asymptomatic currently, no headaches, blurred vision, changes in vision or chest pain, pressure or shortness of breath. 5. Deep venous thrombosis (DVT) prophylaxis with Coumadin per orthopedic surgery. MTDD
[2017-10-10] MEDS ORDERED: WARFARIN SOD 7.5 MG TAB PO ONE (17:00)
[2017-10-10] MEDS: OMEGA-3 1050MG CAPSULE PO SCH (18:18)
[2017-10-10 22:00] VITALS: BP 159/70
[2017-10-11] MEDS: LEVOTHYROXINE 100MCG TABLET (0.1MG) PO SCH (05:33)
[2017-10-11] MEDS: traMADol 50 MG TAB PO PRN ×2 (05:34→11:30)
[2017-10-11 06:00] VITALS: BP 150/65
[2017-10-11 06:07] LABS: BASO % 0.1 % (0.0-1.0); EOS # 0.2 10^3/uL (0.0-0.50); EOS % 1.5 % (0.0-3.0); IMMATURE GRANULOCYTE % 0.5 % (0-0); LYMPH # 1.5 10^3/uL (1.5-4.5); LYMPH % 9.6 % (24.0-44.0); MEAN CORPUSCULAR HGB CONC 30.5 g/dl (32.0-36.5); MEAN CORPUSCULAR VOLUME 91.9 fl (80.0-96.0); MONO # 0.9 10^3/uL (0.0-0.8); MONO % 5.7 % (0.0-5.0); NEUTROPHILS # 12.4 10^3/uL (1.8-7.7); NEUTROPHILS % 82.6 % (36.0-66.0); PLATELET COUNT, AUTOMATED 321 10^3/uL (150-450); RED CELL DISTRIBUTION WIDTH 14.6 % (11.5-14.5)
[2017-10-11 06:16] LABS: INR 1.35
[2017-10-11 06:28] LABS: ANION GAP 5 MEQ/L (8-16); CALCIUM LEVEL 8.7 MG/DL (8.8-10.2); CARBON DIOXIDE LEVEL 33 MEQ/L (21-32); CHLORIDE LEVEL 100 MEQ/L (98-107); CREATININE FOR GFR 0.77 MG/DL (0.55-1.02); GLOMERULAR FILTRATION RATE > 60.0 (>45); GLUCOSE, FASTING 141 MG/DL (80-110); POTASSIUM SERUM 4.2 MEQ/L (3.5-5.1); SODIUM LEVEL 138 MEQ/L (136-145)
[2017-10-11 06:37] LABS: BLOOD UREA NITROGEN 14 MG/DL (7-18)
[2017-10-11] MEDS: LEVALBUTEROL 1.25 MG/0.5 ML CONCENTRATE NEB INH SCH ×4 (07:06→20:00)
[2017-10-11] MEDS: HumaLOG INSULIN (NovoLOG) PER UNIT SC SCH ×4 (07:30→21:00)
[2017-10-11] MEDS ORDERED: ENOXAPARIN 40 MG/0.4 ML SYRINGE (J1650) SC ONE (08:00)
[2017-10-11] MEDS ORDERED: COUM2.5T17 PO (08:04)
[2017-10-11] MEDS ORDERED: TRAM50TA2 PO (08:04)
[2017-10-11] MEDS: MIRALAX *UNIT DOSE* 17GM PACKET PO SCH (09:00)
[2017-10-11] MEDS: MOM 30ML SUSPENSION UDC PO SCH (09:00)
[2017-10-11] MEDS ORDERED: VITAMIN D 50,000 UNITS CAPSULE (ERGOCALCIFEROL 1.25MG) PO SCH (09:00)
[2017-10-11] MEDS: CANDESARTAN 4MG TABLET PO SCH (10:44)
[2017-10-11] MEDS: LACTOBACILLUS ACIDOPHILUS CAP (BACID) PO SCH (10:45)
[2017-10-11] MEDS: OMEPRAZOLE 20 MG CAP PO SCH (10:45)
[2017-10-11] MEDS: SENOKOT S TAB PO SCH ×2 (10:45→21:03)
[2017-10-11] MEDS: ACETAMINOPHEN 500 MG TAB PO SCH ×3 (10:45→21:04)
[2017-10-11 14:00] VITALS: BP 134/61
[2017-10-11] MEDS ORDERED: WARFARIN SOD 5 MG TAB PO ONE (17:00)
[2017-10-11] MEDS ORDERED: WARFARIN SOD 7.5 MG TAB PO ONE (17:00)
[2017-10-11] MEDS: OMEGA-3 1050MG CAPSULE PO SCH (17:10)
[2017-10-11 22:00] VITALS: BP 143/67
[2017-10-12] MEDS: LEVOTHYROXINE 100MCG TABLET (0.1MG) PO SCH (04:47)
[2017-10-12] MEDS: traMADol 50 MG TAB PO PRN ×2 (04:48→11:15)
[2017-10-12 06:00] VITALS: BP 164/76
[2017-10-12 06:42] LABS: MEAN CORPUSCULAR HEMOGLOBIN 28.5 pg (27.0-33.0); MEAN CORPUSCULAR HGB CONC 31.2 g/dl (32.0-36.5); MEAN CORPUSCULAR VOLUME 91.3 fl (80.0-96.0); PLATELET COUNT, AUTOMATED 304 10^3/uL (150-450); RED CELL DISTRIBUTION WIDTH 14.6 % (11.5-14.5); WHITE BLOOD COUNT 11.1 10^3/uL (4.0-10.0)
--- NOTE | 2017-10-12 06:45 | NOCOX ---
DATE OF STUDY: 10/09/2018 to 10/10/2017 ORDERED BY: Hayder Asher MD Study was performed initially on room air then 2 liters nasal cannula. Study was of excellent technical quality. Mean oxygen saturation for this study 92.8%. Lowest reliably recorded saturation approximately 78%. In general, there was marked variability suggesting underlying Geovanni-Bhakta respirations. Intermittent desaturations could either represent underlying obstructive sleep apnea (CLEMENTE) or worsening of the primary issue, but I suspect Geovanni-Bhakta as the primary driving force. Saturations did not remain above 90% until about 0350 in the morning. IMPRESSION: Abnormal nocturnal oximetry as outlined above. Suggest increasing supplemental oxygen and repeating the study.
[2017-10-12 07:03] LABS: INR 1.76
[2017-10-12] MEDS: LEVALBUTEROL 1.25 MG/0.5 ML CONCENTRATE NEB INH SCH ×2 (08:00→11:46)
[2017-10-12] MEDS: CANDESARTAN 4MG TABLET PO SCH (08:22)
[2017-10-12] MEDS: OMEPRAZOLE 20 MG CAP PO SCH (08:22)
[2017-10-12] MEDS: ACETAMINOPHEN 500 MG TAB PO SCH (08:22)
[2017-10-12] MEDS: LACTOBACILLUS ACIDOPHILUS CAP (BACID) PO SCH (08:22)
[2017-10-12] MEDS: SENOKOT S TAB PO SCH (08:23)
[2017-10-12] MEDS: MOM 30ML SUSPENSION UDC PO SCH (08:23)
[2017-10-12] MEDS: HumaLOG INSULIN (NovoLOG) PER UNIT SC SCH ×2 (08:23→12:00)
[2017-10-12] MEDS: MIRALAX *UNIT DOSE* 17GM PACKET PO SCH (08:23)
--- NOTE | 2017-10-12 08:44 | REP ---
Clinical: Hypoxia . Comparison: 10/09/2017 . Findings: The mediastinum and cardiac silhouette are stable and within normal limits for portable technique. The lung fitzpatrick are clear without acute consolidation, effusion, or pneumothorax. Skeletal structures are intact. Impression: No acute cardiopulmonary process appreciated. Signed by Drew Parks MD 10/12/2017 08:35 A
[2017-10-12] MEDS ORDERED: CAND4TAB PO (10:39)
[2017-10-13] MEDS ORDERED: CANDESARTAN 4MG TABLET PO SCH (09:00)
== END 2017-10-12 12:23 | disposition home health service (06) | DRG 301 ==
LOC: M OR 07:36 → M MS5PR 12:15
PROVIDERS: ADMIT Orthopaedic Surgery; ATTEND Orthopaedic Surgery
PROC: 0SR90JZ Replacement of Right Hip Joint with Synthetic Substitute, Open Approach (ICD-10-PCS; principal; 2017-10-08 09:30)
DX: M16.11 Unilateral primary osteoarthritis, right hip (principal); E55.9 Vitamin D deficiency, unspecified; Z88.0 Allergy status to penicillin; Z91.038 Other insect allergy status; E03.9 Hypothyroidism, unspecified; E78.00 Pure hypercholesterolemia, unspecified; Z87.891 Personal history of nicotine dependence; K57.30 Diverticulosis of large intestine without perforation or abscess without bleeding

== ENCOUNTER → 2017-10-26 | Outpatient (REF) | payer OTHER, MEDICARE ==
[~2017-10-26] MED LIST changes: +CAND4TAB PO; +COUM2.5T17 PO; +TRAM50TA2 PO
[2017-10-26 18:30] LABS: INR 1.12
== END ==
LOC: M LAB REF 17:33
PROVIDERS: ATTEND Orthopaedic Surgery
DX: Z51.81 Encounter for therapeutic drug level monitoring (principal); Z79.01 Long term (current) use of anticoagulants

== ENCOUNTER → 2017-12-03 | Outpatient (REF) | payer OTHER ==
[2017-12-03 14:56] LABS: HEMATOCRIT 40.3 % (36.0-47.0); HEMOGLOBIN 12.1 g/dl (12.0-16.0); MEAN CORPUSCULAR HEMOGLOBIN 26.2 pg (27.0-33.0); MEAN CORPUSCULAR VOLUME 87.2 fl (80.0-96.0); PLATELET COUNT, AUTOMATED 397 10^3/uL (150-450); RED BLOOD COUNT 4.62 10^6/uL (4.00-5.40); RED CELL DISTRIBUTION WIDTH 15.7 % (11.5-14.5); WHITE BLOOD COUNT 9.4 10^3/uL (4.0-10.0)
[2017-12-03 15:14] LABS: TOTAL 25(OH) VITAMIN D 60.8 NG/ML (30.0-100.0)
[2017-12-03 15:16] LABS: ALBUMIN 3.5 GM/DL (3.2-5.2); ALBUMIN/GLOBULIN RATIO 0.85 (1.00-1.93); ALKALINE PHOSPHATASE 89 U/L (45-117); ALT/SGPT 28 U/L (12-78); ANION GAP 8 MEQ/L (8-16); AST/SGOT 20 U/L (7-37); BILIRUBIN,TOTAL 0.4 MG/DL (0.2-1.0); BLOOD UREA NITROGEN 12 MG/DL (7-18); CALCIUM LEVEL 9.3 MG/DL (8.8-10.2); CARBON DIOXIDE LEVEL 31 MEQ/L (21-32); CHLORIDE LEVEL 103 MEQ/L (98-107); CREATININE FOR GFR 0.71 MG/DL (0.55-1.02); GLOMERULAR FILTRATION RATE > 60.0 (>45); GLUCOSE, FASTING 94 MG/DL (80-110); POTASSIUM SERUM 4.5 MEQ/L (3.5-5.1); SODIUM LEVEL 142 MEQ/L (136-145); TOTAL PROTEIN 7.6 GM/DL (6.4-8.2)
[2017-12-03 16:24] LABS: ESTIMATED AVERAGE GLUCOSE 140 MG/DL (60-110); HEMOGLOBIN A1c 6.5 %
== END ==
LOC: M SFHCPLAZ 09:11
DX: Z00.00 Encounter for general adult medical examination without abnormal findings (principal); Z23 Encounter for immunization; E55.9 Vitamin D deficiency, unspecified; R73.02 Impaired glucose tolerance (oral); E03.9 Hypothyroidism, unspecified
CPT/HCPCS: 84443

== ENCOUNTER → 2017-12-03 | Outpatient (REF) | payer OTHER ==
[2017-12-03 15:02] LABS: BASO % 0.3 % (0.0-1.0); EOS # 0.2 10^3/uL (0.0-0.50); EOS % 1.9 % (0.0-3.0); HEMOGLOBIN 12.1 g/dl (12.0-16.0); IMMATURE GRANULOCYTE % 0.3 % (0-0); LYMPH % 21.3 % (24.0-44.0); MEAN CORPUSCULAR HEMOGLOBIN 26.5 pg (27.0-33.0); MEAN CORPUSCULAR HGB CONC 30.3 g/dl (32.0-36.5); MEAN CORPUSCULAR VOLUME 87.5 fl (80.0-96.0); MONO # 0.6 10^3/uL (0.0-0.8); MONO % 5.9 % (0.0-5.0); NEUTROPHILS # 6.6 10^3/uL (1.8-7.7); NEUTROPHILS % 70.3 % (36.0-66.0); PLATELET COUNT, AUTOMATED 382 10^3/uL (150-450); RED BLOOD COUNT 4.57 10^6/uL (4.00-5.40); RED CELL DISTRIBUTION WIDTH 15.7 % (11.5-14.5); WHITE BLOOD COUNT 9.4 10^3/uL (4.0-10.0)
[2017-12-03 15:07] LABS: ALBUMIN 3.6 GM/DL (3.2-5.2); ALT/SGPT 26 U/L (12-78); CREATININE FOR GFR 0.73 MG/DL (0.55-1.02); GLOMERULAR FILTRATION RATE > 60.0 (>45)
== END ==
LOC: M LABDRAWP 14:47
DX: M05.79 Rheumatoid arthritis with rheumatoid factor of multiple sites without organ or systems involvement (principal); Z79.899 Other long term (current) drug therapy

== ENCOUNTER → 2018-01-25 | Outpatient (CLI) | payer OTHER ==
[2018-01-25 21:20] LABS: BASO # 0.1 10^3/uL (0.0-0.2); BASO % 0.5 % (0.0-1.0); EOS # 0.3 10^3/uL (0.0-0.50); EOS % 2.6 % (0.0-3.0); HEMATOCRIT 37.5 % (36.0-47.0); HEMOGLOBIN 11.5 g/dl (12.0-16.0); IMMATURE GRANULOCYTE % 0.3 % (0-3.0); LYMPH # 2.2 10^3/uL (1.5-4.5); LYMPH % 22.6 % (24.0-44.0); MEAN CORPUSCULAR HEMOGLOBIN 26.1 pg (27.0-33.0); MEAN CORPUSCULAR HGB CONC 30.7 g/dl (32.0-36.5); MEAN CORPUSCULAR VOLUME 85.2 fl (80.0-96.0); MONO # 0.8 10^3/uL (0.0-0.8); MONO % 7.8 % (0.0-5.0); NEUTROPHILS # 6.4 10^3/uL (1.8-7.7); NEUTROPHILS % 66.2 % (36.0-66.0); PLATELET COUNT, AUTOMATED 322 10^3/uL (150-450); RED CELL DISTRIBUTION WIDTH 16.9 % (11.5-14.5); WHITE BLOOD COUNT 9.6 10^3/uL (4.0-10.0)
[2018-01-25 21:27] LABS: ALBUMIN 3.4 GM/DL (3.2-5.2); ALT/SGPT 24 U/L (12-78); C REACTIVE PROTEIN QUANTITATIV 2.25 MG/DL (0.00-0.30); CREATININE FOR GFR 0.73 MG/DL (0.55-1.30); GLOMERULAR FILTRATION RATE > 60.0 (>45)
[2018-01-25 22:09] LABS: ERYTHROCYTE SEDIMENTATION RATE 56 mm/hr (0-30)
[2018-01-27 14:15] LABS: TISSUE TRANSGLUTAMINASE IgA 3 U/mL (0-3)
== END ==
LOC: M LRY 15:12
DX: M05.79 Rheumatoid arthritis with rheumatoid factor of multiple sites without organ or systems involvement (principal); K90.0 Celiac disease; Z79.899 Other long term (current) drug therapy
CPT/HCPCS: 84460

== ENCOUNTER → 2018-04-06 | Outpatient (REF) | payer OTHER ==
[2018-04-06 19:12] LABS: BASO % 0.4 % (0.0-1.0); EOS # 0.2 10^3/uL (0.0-0.50); EOS % 2.1 % (0.0-3.0); HEMATOCRIT 39.5 % (36.0-47.0); IMMATURE GRANULOCYTE % 0.6 % (0-3.0); LYMPH # 1.7 10^3/uL (1.5-4.5); MEAN CORPUSCULAR HEMOGLOBIN 26.4 pg (27.0-33.0); MEAN CORPUSCULAR HGB CONC 30.4 g/dl (32.0-36.5); MONO # 0.6 10^3/uL (0.0-0.8); NEUTROPHILS % 74.9 % (36.0-66.0); PLATELET COUNT, AUTOMATED 441 10^3/uL (150-450); RED BLOOD COUNT 4.54 10^6/uL (4.00-5.40); RED CELL DISTRIBUTION WIDTH 17.2 % (11.5-14.5); WHITE BLOOD COUNT 10.7 10^3/uL (4.0-10.0)
[2018-04-06 19:20] LABS: ALBUMIN 3.5 GM/DL (3.2-5.2); ALBUMIN/GLOBULIN RATIO 0.85 (1.00-1.93); ALKALINE PHOSPHATASE 92 U/L (45-117); ALT/SGPT 23 U/L (12-78); ANION GAP 5 MEQ/L (8-16); AST/SGOT 13 U/L (7-37); BILIRUBIN,TOTAL 0.3 MG/DL (0.2-1.0); BLOOD UREA NITROGEN 13 MG/DL (7-18); C REACTIVE PROTEIN QUANTITATIV 6.01 MG/DL (0.00-0.30); CALCIUM LEVEL 9.2 MG/DL (8.8-10.2); CARBON DIOXIDE LEVEL 31 MEQ/L (21-32); CHLORIDE LEVEL 106 MEQ/L (98-107); CREATININE FOR GFR 0.72 MG/DL (0.55-1.30); GLOMERULAR FILTRATION RATE > 60.0 (>45); GLUCOSE, FASTING 89 MG/DL (70-100); POTASSIUM SERUM 4.5 MEQ/L (3.5-5.1); SODIUM LEVEL 142 MEQ/L (136-145); TOTAL PROTEIN 7.6 GM/DL (6.4-8.2)
[2018-04-06 19:35] LABS: TOTAL 25(OH) VITAMIN D 58.4 NG/ML (30.0-100.0)
[2018-04-06 20:08] LABS: ESTIMATED AVERAGE GLUCOSE 157 MG/DL (60-110); HEMOGLOBIN A1c 7.1 %
== END ==
LOC: M SFHCPLAZ 15:01
DX: M05.9 Rheumatoid arthritis with rheumatoid factor, unspecified (principal); E55.9 Vitamin D deficiency, unspecified; E11.9 Type 2 diabetes mellitus without complications
CPT/HCPCS: 80053

== ENCOUNTER → 2018-08-12 | Outpatient (REF) | payer OTHER ==
[2018-08-12 14:55] LABS: ESTIMATED AVERAGE GLUCOSE 137 MG/DL (60-110); HEMOGLOBIN A1c 6.4 %
[2018-08-12 15:04] LABS: ALBUMIN 3.5 GM/DL (3.2-5.2); ALBUMIN/GLOBULIN RATIO 0.97 (1.00-1.93); ALKALINE PHOSPHATASE 77 U/L (45-117); ALT/SGPT 36 U/L (12-78); ANION GAP 12 MEQ/L (8-16); AST/SGOT 21 U/L (7-37); BILIRUBIN,TOTAL 0.3 MG/DL (0.2-1.0); BLOOD UREA NITROGEN 13 MG/DL (7-18); CARBON DIOXIDE LEVEL 26 MEQ/L (21-32); CHLORIDE LEVEL 104 MEQ/L (98-107); CHOLESTEROL LEVEL 248 MG/DL (<200); CHOLESTEROL RISK RATIO 5.061 (<5); CREATININE FOR GFR 0.69 MG/DL (0.55-1.30); GLOMERULAR FILTRATION RATE > 60.0 (>45); GLUCOSE, FASTING 96 MG/DL (70-100); HDL CHOLESTEROL 49 MG/DL (>40); LDL CHOLESTEROL 175 MG/DL (<100); NON-HDL-C 199 MG/DL; POTASSIUM SERUM 4.7 MEQ/L (3.5-5.1); SODIUM LEVEL 142 MEQ/L (136-145); THYROID STIMULATING HORMONE 0.982 uIU/ML (0.358-3.740); TOTAL 25(OH) VITAMIN D 63.3 NG/ML (30.0-100.0); TOTAL PROTEIN 7.1 GM/DL (6.4-8.2); TRIGLYCERIDES LEVEL 121 MG/DL (<150)
[2018-08-12 15:46] LABS: CREATININE, URINE 65.9 MG/DL; MALB URINE SIEMENS 5.9 MG/L
[2018-08-12 16:07] LABS: MAU/CREAT RATIO 8.9 MCG/MG (0.0-30.0)
== END ==
LOC: M SFHCPLAZ 08:05
DX: E11.9 Type 2 diabetes mellitus without complications (principal); E55.9 Vitamin D deficiency, unspecified; E03.9 Hypothyroidism, unspecified

== ENCOUNTER → 2019-02-10 | Outpatient (REF) | payer OTHER ==
[~2019-02-10] MED LIST changes: +FOLI1TAB11 PO; -FOLI1TAB4 PO; +METH2.5T48 PO; -METH2.5TA PO; -VITA1CAP40 PO; +VITA50005 PO
[2019-02-10 13:15] LABS: ALBUMIN 3.5 GM/DL (3.2-5.2); ALT/SGPT 29 U/L (12-78); BILIRUBIN,TOTAL 0.3 MG/DL (0.2-1.0); BLOOD UREA NITROGEN 19 MG/DL (7-18); CALCIUM LEVEL 9.6 MG/DL (8.8-10.2); CARBON DIOXIDE LEVEL 30 MEQ/L (21-32); CHLORIDE LEVEL 103 MEQ/L (98-107); CHOLESTEROL LEVEL 236 MG/DL (<200); CHOLESTEROL RISK RATIO 4.068 (<5); CREATININE FOR GFR 0.71 MG/DL (0.55-1.30); GLOMERULAR FILTRATION RATE > 60.0 (>45); GLUCOSE, FASTING 82 MG/DL (70-100); HDL CHOLESTEROL 58 MG/DL (>40); LDL CHOLESTEROL 145 MG/DL (<100); NON-HDL-C 178 MG/DL; POTASSIUM SERUM 4.6 MEQ/L (3.5-5.1); SODIUM LEVEL 140 MEQ/L (136-145); TOTAL PROTEIN 7.3 GM/DL (6.4-8.2); TRIGLYCERIDES LEVEL 167 MG/DL (<150)
[2019-02-10 14:00] LABS: HEMOGLOBIN A1c 6.7 %
[2019-02-10 14:05] LABS: CREATININE, URINE 88.3 MG/DL; MALB URINE SIEMENS 16.6 MG/L; MAU/CREAT RATIO 18.7 MCG/MG (0.0-30.0)
== END ==
LOC: M SFHCPLAZ 09:07
PROVIDERS: ATTEND Nurse Practitioner Adult Health
DX: E11.9 Type 2 diabetes mellitus without complications (principal); E03.9 Hypothyroidism, unspecified; E55.9 Vitamin D deficiency, unspecified

== ENCOUNTER → 2019-08-04 | Outpatient (REF) | payer OTHER ==
[~2019-08-04] MED LIST changes: -ASPI1TAB PO; +ASPI81TA26 PO; -METF750T PO; +METF750T36 PO; -OMEP20CA3 PO; +OMEP20CA4 PO
[2019-08-04 13:45] LABS: ALBUMIN 3.6 GM/DL (3.2-5.2); ALT/SGPT 41 U/L (12-78); BILIRUBIN,TOTAL 0.3 MG/DL (0.2-1.0); BLOOD UREA NITROGEN 18 MG/DL (7-18); CALCIUM LEVEL 9.3 MG/DL (8.8-10.2); CARBON DIOXIDE LEVEL 29 MEQ/L (21-32); CHLORIDE LEVEL 106 MEQ/L (98-107); CHOLESTEROL LEVEL 242 MG/DL (<200); CHOLESTEROL RISK RATIO 4.033 (<5); CREATININE FOR GFR 0.83 MG/DL (0.55-1.30); GLOMERULAR FILTRATION RATE > 60.0 (>45); GLUCOSE, FASTING 100 MG/DL (70-100); HDL CHOLESTEROL 60 MG/DL (>40); LDL CHOLESTEROL 150 MG/DL (<100); NON-HDL-C 182 MG/DL; POTASSIUM SERUM 4.6 MEQ/L (3.5-5.1); SODIUM LEVEL 142 MEQ/L (136-145); TOTAL PROTEIN 6.8 GM/DL (6.4-8.2); TRIGLYCERIDES LEVEL 160 MG/DL (<150)
[2019-08-04 13:52] LABS: HEMOGLOBIN A1c 6.3 %
[2019-08-04 14:13] LABS: MAU/CREAT RATIO 8.8 MCG/MG (0.0-30.0)
== END ==
LOC: M SFHCPLAZ 08:19
PROVIDERS: ATTEND Nurse Practitioner Adult Health
DX: E11.9 Type 2 diabetes mellitus without complications (principal); E03.9 Hypothyroidism, unspecified

== ENCOUNTER 2019-08-29 07:21 | Emergency (ER) | payer OTHER ==
[~2019-08-29] VITALS: Ht 162.6 cm; Wt 100.5 kg
[2019-08-29 08:06] LABS: BASO % 0.2 % (0.0-1.0); EOS # 0.1 10^3/uL (0.0-0.5); EOS % 0.6 % (0.0-3.0); HEMATOCRIT 41.9 % (36.0-47.0); HEMOGLOBIN 13.4 g/dl (12.0-15.5); LYMPH # 1.3 10^3/uL (1.5-5.0); LYMPH % 10.5 % (24.0-44.0); MEAN CORPUSCULAR HEMOGLOBIN 28.5 pg (27.0-33.0); MEAN CORPUSCULAR VOLUME 89.1 fl (80.0-96.0); MONO # 0.8 10^3/uL (0.0-0.8); MONO % 6.7 % (0.0-5.0); NEUTROPHILS # 10.1 10^3/uL (1.5-8.5); NEUTROPHILS % 81.7 % (36.0-66.0); PLATELET COUNT, AUTOMATED 240 10^3/uL (150-450); WHITE BLOOD COUNT 12.4 10^3/uL (4.0-10.0)
[2019-08-29] MEDS ORDERED: NORCO, ANEXSIA 5/325MG TABLET (HYDROcodone/ACETAMINOPHEN) PO ONE (08:15)
[2019-08-29] MEDS ORDERED: KETOROLAC 30 MG/ML VIAL (J1885) IV ONE (08:30)
[2019-08-29] MEDS ORDERED: ASPI81TA85 PO (08:40)
[2019-08-29] MEDS ORDERED: ETAN50PE INJ (08:40)
[2019-08-29] MEDS ORDERED: LOSA25TA14 PO (08:40)
[2019-08-29 08:45] LABS: ALBUMIN 3.8 GM/DL (3.2-5.2); ALT/SGPT 32 U/L (12-78); BILIRUBIN,DIRECT 0.1 MG/DL (0.0-0.2); BILIRUBIN,TOTAL 0.4 MG/DL (0.2-1.0); BLOOD UREA NITROGEN 14 MG/DL (7-18); C REACTIVE PROTEIN QUANTITATIV 2.47 MG/DL (0.00-0.30); CALCIUM LEVEL 9.2 MG/DL (8.8-10.2); CARBON DIOXIDE LEVEL 27 MEQ/L (21-32); CHLORIDE LEVEL 106 MEQ/L (98-107); CK-MB VALUE MASS 1.1 NG/ML (<3.6); CPK CREATINE PHOSPHOKINASE 96 U/L (26-192); CREATININE FOR GFR 0.85 MG/DL (0.55-1.30); GLOMERULAR FILTRATION RATE > 60.0 (>45); GLUCOSE, FASTING 125 MG/DL (70-100); LIPASE 112 U/L (73-393); MB/CK RELATIVE INDEX 1.15 (< OR =4); NT-PRO BNP 348 PG/ML (<125); POTASSIUM SERUM 4.2 MEQ/L (3.5-5.1); SODIUM LEVEL 140 MEQ/L (136-145); TOTAL PROTEIN 7.5 GM/DL (6.4-8.2); TROPONIN I < 0.02 NG/ML (< 0.10)
[2019-08-29 09:00] LABS: ERYTHROCYTE SEDIMENTATION RATE 25 mm/hr (0-30)
[2019-08-29 09:01] LABS: INFLUENZA A AMPLIFICATION NEGATIVE (NEGATIVE); INFLUENZA B AMPLIFICATION NEGATIVE (NEGATIVE)
--- NOTE | 2019-08-29 09:03 | REP ---
RIGHT SHOULDER, THREE VIEWS: Three views of the right shoulder performed. There is no acute fracture or dislocation. There is mild narrowing and spurring at the acromioclavicular joint. IMPRESSION: Mild degenerative changes acromioclavicular joint. No fracture or dislocation. Electronically Signed by Sergo Russell MD 08/29/2019 11:23 P
--- NOTE | 2019-08-29 09:19 | REP ---
Portable chest, 07:00 a.m., single AP view with the the patient upright: Comparison is 10/12/2017. The lung fitzpatrick are clear. The cardiac size is normal. The jacki, mediastinum, and skeletal structures are unremarkable. Impression: Negative portable chest. There is no interval change. Electronically Signed by Sergo Ambriz MD 08/29/2019 09:10 A
[2019-08-29 10:49] VITALS: BP 152/62
--- NOTE | 2019-08-30 00:36 | ECGEPIP ---
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
== END 2019-08-29 11:04 | disposition home or self-care (01) ==
LOC: M ED 07:21
DX: M25.511 Pain in right shoulder (principal); J06.9 Acute upper respiratory infection, unspecified; I10 Essential (primary) hypertension; E03.9 Hypothyroidism, unspecified; M06.9 Rheumatoid arthritis, unspecified; Z88.0 Allergy status to penicillin; Z91.030 Bee allergy status
CPT/HCPCS: 71045; 73030; 80048; 80076; 82550; 82553; 83690; 83880; 84443; 84484; 85025; 85652; 86140; 87502; 87880; 93005; 93041; 94760; 96372; 99285; J1885

== ENCOUNTER 2020-01-18 10:41 | Emergency (ER) | payer BC, OTHER ==
[~2020-01-18] VITALS: Ht 162.6 cm; Wt 98.6 kg
[~2020-01-18 10:41] MED LIST changes: +ASPI81TA85 PO; +ETAN50PE INJ; +LOSA25TA14 PO; +OMEP1CAP73 PO; -OMEP20CA4 PO
[2020-01-18] MEDS ORDERED: RA T500C2 PO (10:55)
[2020-01-18] MEDS ORDERED: METH50IN8 (10:55)
--- NOTE | 2020-01-18 12:08 | REP ---
Portable chest, 11:45 a.m., single AP view with the patient sitting: Comparison is 08/29/2019. The lung fitzpatrick are clear. The cardiac size is normal. The jacki, mediastinum, and skeletal structures are unremarkable. Impression: Negative portable chest. There is no interval change. Electronically Signed by Sergo Ambriz MD 01/18/2020 11:59 A
[2020-01-18 12:18] LABS: BASO % 0.3 % (0.0-1.0); EOS # 0.1 10^3/uL (0.0-0.5); EOS % 0.7 % (0.0-3.0); HEMOGLOBIN 13.5 g/dl (12.0-15.5); LYMPH # 1.2 10^3/uL (1.5-5.0); LYMPH % 11.7 % (24.0-44.0); MEAN CORPUSCULAR HGB CONC 31.4 g/dl (32.0-36.5); MONO # 0.4 10^3/uL (0.0-0.8); MONO % 3.7 % (0.0-5.0); NEUTROPHILS # 8.2 10^3/uL (1.5-8.5); NEUTROPHILS % 83.3 % (36.0-66.0); PLATELET COUNT, AUTOMATED 282 10^3/uL (150-450); RED BLOOD COUNT 4.83 10^6/uL (4.00-5.40); WHITE BLOOD COUNT 9.8 10^3/uL (4.0-10.0)
[2020-01-18 12:30] LABS: INR 0.98; PROTHROMBIN TIME 12.7 SECONDS (11.8-14.0)
[2020-01-18 12:31] LABS: PARTIAL THROMBOPLASTIN TIME 28.7 SECONDS (25.0-38.4)
[2020-01-18 12:39] LABS: BLOOD UREA NITROGEN 17 MG/DL (7-18); CALCIUM LEVEL 9.6 MG/DL (8.8-10.2); CARBON DIOXIDE LEVEL 29 MEQ/L (21-32); CHLORIDE LEVEL 105 MEQ/L (98-107); CK-MB VALUE MASS 1.1 NG/ML (<3.6); CPK CREATINE PHOSPHOKINASE 77 U/L (26-192); CREATININE FOR GFR 0.84 MG/DL (0.55-1.30); FREE T4 1.23 NG/DL (0.76-1.46); GLOMERULAR FILTRATION RATE > 60.0 (>45); GLUCOSE, FASTING 125 MG/DL (70-100); MAGNESIUM LEVEL 1.9 MG/DL (1.8-2.4); MB/CK RELATIVE INDEX 1.43 (< OR =4); POTASSIUM SERUM 3.9 MEQ/L (3.5-5.1); SODIUM LEVEL 137 MEQ/L (136-145); TROPONIN I < 0.02 NG/ML (< 0.10)
[2020-01-18 12:42] LABS: INFLUENZA A AMPLIFICATION NEGATIVE (NEGATIVE); INFLUENZA B AMPLIFICATION NEGATIVE (NEGATIVE)
[2020-01-18] MEDS ORDERED: ISOVUE-370 76% 100ML VIAL (Q9967) As Ordered ONE (12:43)
--- NOTE | 2020-01-18 13:28 | REP ---
CT of the chest with IV contrast, CT pulmonary angiography: Comparison is 10/09/2017. There are no emboli in the pulmonary trunk or central pulmonary arteries. There are no emboli in the pulmonary lobe or segment branches. There are no infiltrates or pleural effusions. There are no lung masses or nodules. There is no mediastinal, hilar or axillary lymph node enlargement. The thoracic aorta is unremarkable. Cardiac size is normal. The visualized upper abdominal contents are unremarkable. Impression: Negative CT study of the chest. No evidence of pulmonary emboli. Electronically Signed by Sergo Ambriz MD 01/18/2020 01:19 P
--- NOTE | 2020-01-18 14:32 | REP ---
CT BRAIN WITHOUT CONTRAST: HISTORY: Presyncope. No comparison CT study. CT FINDINGS: Preliminary digital pot fisher radiograph is unremarkable. Bone window settings demonstrate an intact bony calvarium. Visualized paranasal sinuses are clear. No intraorbital abnormalities appreciated. There is a fairly well-defined area of encephalomalacia in the right parietal lobe consistent with a previous infarction. There is no evidence of intracranial hemorrhage. Lateral, third and fourth ventricles are normal in size and position. No extra-axial fluid collection is seen. No mass or midline shift is observed. 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 No bleed or acute infarct seen. Otherwise negative. Electronically Signed by Hernan Rucker MD 01/18/2020 07:35 P
--- NOTE | 2020-01-18 14:36 | REP ---
CT ABDOMEN AND PELVIS WITH IV CONTRAST: TECHNIQUE: Axial contrast enhanced images from the lung bases to the pubic symphysis using 100 mL Isovue 370 intravenous contrast material with multiplanar reformations. Liver, spleen, adrenals, pancreas and kidneys appear unremarkable. There is no hydronephrosis. There is mild atherosclerotic calcification of the abdominal aorta without aneurysm. There is no adenopathy. There is no free air or free fluid. There is bowel thickening. There is sigmoid diverticulosis without evidence of acute diverticulitis. No pelvic mass is seen. Urinary bladder is grossly unremarkable. Pelvic structures are not optimally visualized due to streak artifact from a metallic right hip prosthesis. There are degenerative changes of the spine. IMPRESSION: No acute abnormalities detected in the abdomen or pelvis. There is sigmoid diverticulosis without evidence of acute diverticulitis. No free air or free fluid. No other acute finding. Electronically Signed by Sergo Russell MD 01/18/2020 03:26 P
[2020-01-18] MEDS ORDERED: LOSA50TA88 PO (15:16)
[2020-01-18 15:39] VITALS: BP 160/78
--- NOTE | 2020-01-19 05:41 | ECGEPIP ---
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
== END 2020-01-18 15:48 | disposition home or self-care (01) ==
LOC: EDBD 10:41 → EDSEX 10:41 → M ED 10:41
DX: R55 Syncope and collapse (principal); K57.30 Diverticulosis of large intestine without perforation or abscess without bleeding; R11.0 Nausea; R19.7 Diarrhea, unspecified; Z20.89 Contact with and (suspected) exposure to other communicable diseases; R73.03 Prediabetes; I10 Essential (primary) hypertension; E03.9 Hypothyroidism, unspecified; Z87.891 Personal history of nicotine dependence; Z79.82 Long term (current) use of aspirin; Z79.84 Long term (current) use of oral hypoglycemic drugs; Z79.899 Other long term (current) drug therapy; Z88.0 Allergy status to penicillin; Z91.030 Bee allergy status
CPT/HCPCS: 36415; 70450; 71045; 71275; 74177; 80048; 81001; 82550; 82553; 83735; 84439; 84443; 84484; 85025; 85610; 85730; 87502; 93005; 93041; 94760; 99285; Q9967

== ENCOUNTER → 2020-03-05 | Outpatient (REF) | payer BC ==
[~2020-03-05] MED LIST changes: +LOSA50TA88 PO; +METH50IN8; +RA T500C2 PO
[2020-03-05 11:33] LABS: ALBUMIN 3.5 GM/DL (3.2-5.2); ALT/SGPT 29 U/L (12-78); BILIRUBIN,TOTAL 0.3 MG/DL (0.2-1.0); BLOOD UREA NITROGEN 18 MG/DL (7-18); CALCIUM LEVEL 9.4 MG/DL (8.8-10.2); CARBON DIOXIDE LEVEL 30 MEQ/L (21-32); CHLORIDE LEVEL 106 MEQ/L (98-107); CHOLESTEROL LEVEL 242 MG/DL (<200); CHOLESTEROL RISK RATIO 4.101 (<5); CREATININE FOR GFR 0.81 MG/DL (0.55-1.30); GLOMERULAR FILTRATION RATE > 60.0 (>45); GLUCOSE, FASTING 110 MG/DL (70-100); HDL CHOLESTEROL 59 MG/DL (>40); LDL CHOLESTEROL 150 MG/DL (<100); NON-HDL-C 183 MG/DL; POTASSIUM SERUM 4.7 MEQ/L (3.5-5.1); SODIUM LEVEL 140 MEQ/L (136-145); TOTAL PROTEIN 7.4 GM/DL (6.4-8.2); TRIGLYCERIDES LEVEL 165 MG/DL (<150)
[2020-03-05 11:44] LABS: HEMOGLOBIN A1c 6.6 %
== END ==
LOC: M SFHCPLAZ 08:53
PROVIDERS: ATTEND Internal Medicine
DX: E03.9 Hypothyroidism, unspecified (principal); E11.9 Type 2 diabetes mellitus without complications; I10 Essential (primary) hypertension

== ENCOUNTER 2020-07-04 11:15 | Day surgery (SDC) | payer BC ==
[~2020-07-04 11:15] MED LIST changes: -ASPI81TA85 PO; +ASPI81TA86 PO
[2020-07-04] MEDS ORDERED: propofoL 200 MG/20 ML VIAL As Ordered ONE (12:34)
[2020-07-04] MEDS ORDERED: LIDOCAINE 2% 100MG/5ML SDV (FOR ANES.) As Ordered ONE (13:06)
--- NOTE | 2020-08-01 11:28 | ROOR ---
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 Procedure: Pre-Anesthesia Assessment: - The heart rate, respiratory rate, oxygen saturations, blood pressure, adequacy of pulmonary ventilation, and response to care were monitored throughout the procedure. The Colonoscope was introduced through the anus and advanced to the cecum, identified by appendiceal orifice and ileocecal valve. The colonoscopy was performed without difficulty. The patient tolerated the procedure well. The quality of the bowel preparation was excellent. Findings: The perianal and digital rectal examinations were normal. Non-bleeding internal hemorrhoids were found during retroflexion. The hemorrhoids were small and Grade I (internal hemorrhoids that do not prolapse). Multiple small and large-mouthed diverticula were found in the recto-sigmoid colon, sigmoid colon and descending colon. The exam was otherwise without abnormality on direct and retroflexion views. Impression: - Non-bleeding internal hemorrhoids. - Diverticulosis in the recto-sigmoid colon, in the sigmoid colon and in the descending colon. - The examination was otherwise normal on direct and retroflexion views. - No specimens collected. - The exam was otherwise normal to the cecum. Recommendation: - Patient has a contact number available for emergencies. The signs and symptoms of potential delayed complications were discussed with the patient. Return to normal activities tomorrow. Written discharge instructions were provided to the patient. - High fiber diet. - Discharge patient to home. - Continue present medications. - Repeat colonoscopy in 5 years for surveillance. - Return to referring physician. - The findings and recommendations were discussed with the patient. Darrian Justin MD 07/04/2020 1:00:09 PM Number of Addenda: 0 Note Initiated On: 07/04/2020 12:34 PM Estimated Blood Loss: Estimated blood loss: none.
== END 2020-07-04 13:20 | disposition home or self-care (01) ==
LOC: M SDC 11:15
PROVIDERS: ATTEND Internal Medicine Gastroenterology
DX: Z12.11 Encounter for screening for malignant neoplasm of colon (principal); Z86.010 Personal history of colon polyps; Z80.0 Family history of malignant neoplasm of digestive organs; K64.0 First degree hemorrhoids; K57.30 Diverticulosis of large intestine without perforation or abscess without bleeding; E11.9 Type 2 diabetes mellitus without complications; I10 Essential (primary) hypertension; Z79.82 Long term (current) use of aspirin; Z79.84 Long term (current) use of oral hypoglycemic drugs; Z79.899 Other long term (current) drug therapy; Z88.0 Allergy status to penicillin; Z91.030 Bee allergy status; Z87.891 Personal history of nicotine dependence

== ENCOUNTER 2020-07-24 10:28 | Emergency (ER) | payer BC ==
[~2020-07-24] VITALS: Ht 162.6 cm; Wt 99.2 kg
[2020-07-24] MEDS ORDERED: OMEG10002 PO (11:16)
[2020-07-24] MEDS ORDERED: VITA50005 PO (11:16)
[2020-07-24] MEDS ORDERED: LOSA100T50 PO (11:16)
[2020-07-24] MEDS ORDERED: NAPROXEN 250 MG TAB PO ONE (11:45)
--- NOTE | 2020-07-24 11:46 | REPVR ---
PROCEDURE INFORMATION: Exam: US Duplex Left Lower Extremity Veins, Limited Exam date and time: 07/24/2020 11:28 AM Age: 70 years old Clinical indication: Pain; Leg, lower; Left; Additional info: Swelling/pain TECHNIQUE: Imaging protocol: Real-time Duplex ultrasound of the Left Lower Extremity with 2-D aquino scale, color Doppler flow and spectral waveform analysis with image documentation. Limited exam focused on the left lower extremity veins. COMPARISON: No relevant prior studies available. FINDINGS: Left deep veins: The common femoral, femoral, and popliteal veins are patent without thrombus. Normal compressibility and/or augmentation response. Left superficial veins: The saphenofemoral junction is patent without thrombus. Soft tissues: Unremarkable. IMPRESSION: No evidence of deep vein thrombosis in the visualized lower extremity. Electronically signed by: Jesús Coyle On 07/24/2020 11:45:53 AM
[2020-07-24] MEDS ORDERED: NAPR-837 PO (13:39)
[2020-07-24 13:53] VITALS: BP 150/70
--- NOTE | 2020-08-20 09:50 | REP ---
LEFT ANKLE SERIES: HISTORY: Pain and swelling. TECHNIQUE: 4-views of the left ankle are performed. FINDINGS: There is no acute fracture or dislocation. The ankle mortise is anatomic. There is mild posterior and inferior calcaneal spurring. IMPRESSION: Mild degenerative changes without fracture or dislocation. MTDD
== END 2020-07-24 13:55 | disposition home or self-care (01) ==
LOC: M ED 10:28
DX: R22.42 Localized swelling, mass and lump, left lower limb (principal); M79.662 Pain in left lower leg; E11.9 Type 2 diabetes mellitus without complications; I10 Essential (primary) hypertension; E78.5 Hyperlipidemia, unspecified; E03.9 Hypothyroidism, unspecified; M06.9 Rheumatoid arthritis, unspecified; Z88.0 Allergy status to penicillin; Z91.030 Bee allergy status; Z79.899 Other long term (current) drug therapy

== ENCOUNTER → 2020-08-30 | Outpatient (CLI) | payer BC ==
[~2020-08-30] MED LIST changes: +LOSA100T50 PO; +NAPR-837 PO; +OMEG10002 PO
[2020-08-30 12:41] LABS: BASO % 0.5 % (0.0-1.0); EOS # 0.3 10^3/uL (0.0-0.5); EOS % 4.1 % (0.0-3.0); HEMATOCRIT 41.7 % (36.0-47.0); HEMOGLOBIN 12.7 g/dl (12.0-15.5); LYMPH # 2.2 10^3/uL (1.5-5.0); LYMPH % 30.6 % (24.0-44.0); MEAN CORPUSCULAR HEMOGLOBIN 26.8 pg (27.0-33.0); MEAN CORPUSCULAR HGB CONC 30.5 g/dl (32.0-36.5); MEAN CORPUSCULAR VOLUME 88.2 fl (80.0-96.0); MONO # 0.6 10^3/uL (0.0-0.8); MONO % 8.5 % (0.0-5.0); NEUTROPHILS # 4.1 10^3/uL (1.5-8.5); PLATELET COUNT, AUTOMATED 281 10^3/uL (150-450); RED BLOOD COUNT 4.73 10^6/uL (4.00-5.40); WHITE BLOOD COUNT 7.3 10^3/uL (4.0-10.0)
[2020-08-30 13:11] LABS: ALBUMIN 3.5 GM/DL (3.2-5.2); ALT/SGPT 27 U/L (12-78); BILIRUBIN,TOTAL 0.3 MG/DL (0.2-1.0); BLOOD UREA NITROGEN 16 MG/DL (7-18); C REACTIVE PROTEIN QUANTITATIV 0.79 MG/DL (0.00-0.30); CARBON DIOXIDE LEVEL 30 MEQ/L (21-32); CHLORIDE LEVEL 106 MEQ/L (98-107); CREATININE FOR GFR 0.81 MG/DL (0.55-1.30); GLOMERULAR FILTRATION RATE > 60.0 (>39); GLUCOSE, FASTING 93 MG/DL (70-100); POTASSIUM SERUM 4.4 MEQ/L (3.5-5.1); SODIUM LEVEL 139 MEQ/L (136-145); TOTAL PROTEIN 7.1 GM/DL (6.4-8.2); URIC ACID 6.1 MG/DL (2.6-6.0)
[2020-08-30 13:38] LABS: ERYTHROCYTE SEDIMENTATION RATE 20 mm/hr (0-30)
== END ==
LOC: M WUC 10:09
DX: Z79.899 Other long term (current) drug therapy (principal)

== ENCOUNTER → 2020-10-04 | Outpatient (REF) | payer BC ==
[2020-10-04 10:39] LABS: HEMOGLOBIN A1c 5.9 %
[2020-10-04 10:47] LABS: ALBUMIN 3.7 GM/DL (3.2-5.2); ALT/SGPT 29 U/L (12-78); BILIRUBIN,TOTAL 0.3 MG/DL (0.2-1.0); BLOOD UREA NITROGEN 18 MG/DL (7-18); C REACTIVE PROTEIN QUANTITATIV 2.09 MG/DL (0.00-0.30); CALCIUM LEVEL 9.6 MG/DL (8.8-10.2); CARBON DIOXIDE LEVEL 31 MEQ/L (21-32); CHLORIDE LEVEL 102 MEQ/L (98-107); CHOLESTEROL LEVEL 239 MG/DL (<200); CHOLESTEROL RISK RATIO 3.918 (<5); GLOMERULAR FILTRATION RATE > 60.0 (>39); GLUCOSE, FASTING 100 MG/DL (70-100); HDL CHOLESTEROL 61 MG/DL (>40); LDL CHOLESTEROL 144 MG/DL (<100); NON-HDL-C 178 MG/DL; POTASSIUM SERUM 4.4 MEQ/L (3.5-5.1); SODIUM LEVEL 139 MEQ/L (136-145); TOTAL PROTEIN 7.2 GM/DL (6.4-8.2); TRIGLYCERIDES LEVEL 169 MG/DL (<150)
[2020-10-04 11:15] LABS: MALB URINE SIEMENS 9.6 MG/L; MAU/CREAT RATIO 8.2 MCG/MG (0.0-30.0)
== END ==
LOC: M PLALAB 08:00
PROVIDERS: ATTEND Internal Medicine
DX: I10 Essential (primary) hypertension (principal); M05.9 Rheumatoid arthritis with rheumatoid factor, unspecified; E11.9 Type 2 diabetes mellitus without complications; E78.00 Pure hypercholesterolemia, unspecified; E03.9 Hypothyroidism, unspecified

== ENCOUNTER → 2021-01-28 | Outpatient (CLI) | payer BC ==
[2021-01-28 10:19] LABS: HEMOGLOBIN A1c 6.2 %
[2021-01-28 10:39] LABS: ALBUMIN 3.8 GM/DL (3.2-5.2); BILIRUBIN,TOTAL 0.3 MG/DL (0.2-1.0); CALCIUM LEVEL 9.1 MG/DL (8.8-10.2); CHOLESTEROL RISK RATIO 2.869 (<5); CREATININE FOR GFR 0.98 MG/DL (0.55-1.30); GLOMERULAR FILTRATION RATE 59.7 (>39); MAGNESIUM LEVEL 2.1 MG/DL (1.8-2.4); POTASSIUM SERUM 4.5 MEQ/L (3.5-5.1); THYROID STIMULATING HORMONE 1.42 uIU/ML (0.358-3.740); TOTAL PROTEIN 7.1 GM/DL (6.4-8.2)
[2021-01-28 10:47] LABS: CREATININE, URINE 90.2 MG/DL; MALB URINE SIEMENS 6.8 MG/L; MAU/CREAT RATIO 7.5 MCG/MG (0.0-30.0)
[2021-01-28 10:56] LABS: TOTAL 25(OH) VITAMIN D 86.1 NG/ML (30.0-100.0)
== END ==
LOC: M WUC 08:06
PROVIDERS: ATTEND Nurse Practitioner Adult Health
DX: E55.9 Vitamin D deficiency, unspecified (principal); E11.9 Type 2 diabetes mellitus without complications; I10 Essential (primary) hypertension; E03.9 Hypothyroidism, unspecified; E78.00 Pure hypercholesterolemia, unspecified

== ENCOUNTER → 2021-02-25 | Outpatient (CLI) | payer BC ==
[2021-02-25 09:57] LABS: BASO % 0.6 % (0.0-1.0); EOS # 0.2 10^3/uL (0.0-0.5); EOS % 3.1 % (0.0-3.0); HEMATOCRIT 42.7 % (36.0-47.0); HEMOGLOBIN 13.1 g/dl (12.0-15.5); LYMPH # 1.8 10^3/uL (1.5-5.0); LYMPH % 26.6 % (24.0-44.0); MEAN CORPUSCULAR HEMOGLOBIN 27.1 pg (27.0-33.0); MEAN CORPUSCULAR HGB CONC 30.7 g/dl (32.0-36.5); MEAN CORPUSCULAR VOLUME 88.4 fl (80.0-96.0); MONO # 0.6 10^3/uL (0.0-0.8); MONO % 8.4 % (2.0-8.0); NEUTROPHILS # 4.1 10^3/uL (1.5-8.5); NEUTROPHILS % 61.2 % (36.0-66.0); PLATELET COUNT, AUTOMATED 249 10^3/uL (150-450); RED BLOOD COUNT 4.83 10^6/uL (4.00-5.40); WHITE BLOOD COUNT 6.7 10^3/uL (4.0-10.0)
[2021-02-25 10:16] LABS: ERYTHROCYTE SEDIMENTATION RATE 11 mm/hr (0-30)
[2021-02-25 10:22] LABS: ALBUMIN 3.5 GM/DL (3.2-5.2); ALT/SGPT 30 U/L (12-78); BILIRUBIN,TOTAL 0.2 MG/DL (0.2-1.0); BLOOD UREA NITROGEN 15 MG/DL (7-18); C REACTIVE PROTEIN QUANTITATIV 0.71 MG/DL (0.00-0.30); CALCIUM LEVEL 8.8 MG/DL (8.8-10.2); CARBON DIOXIDE LEVEL 30 MEQ/L (21-32); CHLORIDE LEVEL 108 MEQ/L (98-107); CREATININE FOR GFR 0.81 MG/DL (0.55-1.30); GLOMERULAR FILTRATION RATE > 60.0 (>39); GLUCOSE, FASTING 107 MG/DL (70-100); POTASSIUM SERUM 4.3 MEQ/L (3.5-5.1); SODIUM LEVEL 143 MEQ/L (136-145); TOTAL PROTEIN 6.8 GM/DL (6.4-8.2); URIC ACID 6.5 MG/DL (2.6-6.0)
== END ==
LOC: M WUC 08:07
PROVIDERS: ATTEND Internal Medicine Rheumatology
DX: Z79.899 Other long term (current) drug therapy (principal)

== ENCOUNTER → 2021-07-10 | Outpatient (CLI) | payer BC ==
[~2021-07-10] MED LIST changes: +ERGO500029 PO
[2021-07-10 10:28] LABS: BASO # 0.1 10^3/uL (0.0-0.2); BASO % 0.6 % (0.0-1.0); EOS # 0.3 10^3/uL (0.0-0.5); EOS % 2.9 % (0.0-3.0); HEMOGLOBIN 13.5 g/dl (12.0-15.5); LYMPH # 2.2 10^3/uL (1.5-5.0); LYMPH % 24.4 % (24.0-44.0); MEAN CORPUSCULAR HEMOGLOBIN 27.9 pg (27.0-33.0); MEAN CORPUSCULAR HGB CONC 31.4 g/dl (32.0-36.5); MEAN CORPUSCULAR VOLUME 88.8 fl (80.0-96.0); MONO # 0.6 10^3/uL (0.0-0.8); MONO % 6.3 % (2.0-8.0); NEUTROPHILS % 65.6 % (36.0-66.0); PLATELET COUNT, AUTOMATED 309 10^3/uL (150-450); RED BLOOD COUNT 4.84 10^6/uL (4.00-5.40); WHITE BLOOD COUNT 9.1 10^3/uL (4.0-10.0)
[2021-07-10 11:02] LABS: ALBUMIN 3.5 GM/DL (3.2-5.2); ALT/SGPT 42 U/L (12-78); BILIRUBIN,TOTAL 0.2 MG/DL (0.2-1.0); BLOOD UREA NITROGEN 22 MG/DL (7-18); C REACTIVE PROTEIN QUANTITATIV 1.78 MG/DL (0.00-0.30); CALCIUM LEVEL 9.4 MG/DL (8.8-10.2); CARBON DIOXIDE LEVEL 29 MEQ/L (21-32); CHLORIDE LEVEL 108 MEQ/L (98-107); CREATININE FOR GFR 0.74 MG/DL (0.55-1.30); GLOMERULAR FILTRATION RATE > 60.0 (>39); GLUCOSE, FASTING 103 MG/DL (70-100); POTASSIUM SERUM 4.4 MEQ/L (3.5-5.1); SODIUM LEVEL 140 MEQ/L (136-145); TOTAL PROTEIN 7.1 GM/DL (6.4-8.2)
[2021-07-10 11:09] LABS: ERYTHROCYTE SEDIMENTATION RATE 27 mm/hr (0-30)
== END ==
LOC: M WUC 08:07
PROVIDERS: ATTEND Internal Medicine Rheumatology
DX: M05.79 Rheumatoid arthritis with rheumatoid factor of multiple sites without organ or systems involvement (principal); Z79.899 Other long term (current) drug therapy

== ENCOUNTER → 2021-07-30 | Outpatient (REF) | payer BC | LOC: M SFHCPLAZ 21:20 | PROVIDERS: ATTEND Nurse Practitioner Adult Health | DX: I10 Essential (primary) hypertension (principal); E11.9 Type 2 diabetes mellitus without complications; E55.9 Vitamin D deficiency, unspecified; E78.2 Mixed hyperlipidemia ==

== ENCOUNTER → 2021-08-07 | Outpatient (CLI) | payer BC ==
[2021-08-07 11:21] LABS: HEMOGLOBIN A1c 6.3 %
[2021-08-07 11:27] LABS: CHOLESTEROL RISK RATIO 3.171 (<5); THYROID STIMULATING HORMONE 1.28 uIU/ML (0.358-3.740); TOTAL 25(OH) VITAMIN D 78.1 NG/ML (30.0-100.0)
[2021-08-07 12:19] LABS: MALB URINE SIEMENS 12.8 MG/L; MAU/CREAT RATIO 11.3 MCG/MG (0.0-30.0)
== END ==
LOC: M WUC 08:02
PROVIDERS: ATTEND Nurse Practitioner Adult Health
DX: E55.9 Vitamin D deficiency, unspecified (principal); E11.9 Type 2 diabetes mellitus without complications; E78.2 Mixed hyperlipidemia; E03.9 Hypothyroidism, unspecified

== ENCOUNTER → 2021-08-19 | Outpatient (CLI) | payer BC ==
--- NOTE | 2021-08-19 09:53 | REP ---
INDICATION: LUQ COMPARISON: None. TECHNIQUE: Real time B-mode aquino scale ultrasound examination using curved array transducer. FINDINGS: Spleen is normal in size measuring 10.2 x 4.9 x 9.3 cm (splenic index 464), and without focal splenic abnormality. Left kidney is normal in reniform shape, contour, size, and echotexture without hydronephrosis, nephrolithiasis, cystic or renal mass lesion. Kidney measures 10.0 x 5.7 x 4.5 cm. IMPRESSION: Normal left upper quadrant ultrasound. <Electronically signed by Drew Parks > 08/19/21 0949
== END ==
LOC: M WHC 08:09
PROVIDERS: ATTEND Nurse Practitioner Adult Health
DX: R10.12 Left upper quadrant pain (principal)

== ENCOUNTER → 2021-09-23 | Outpatient (CLI) | payer BC ==
--- NOTE | 2021-09-23 09:05 | REPMRS ---
Patient History The patient states she had a clinical breast exam in November 2020. Patient is postmenopausal. Family history of colorectal cancer at age 80 in mother, breast cancer at age 60 in paternal grandmother. No Hormone Replacement Therapy Patient states no breast complaints today. Patient has signed MRS History Sheet. Digital Woman Screen Mammo: September 23, 2021 - Exam #: [id number] Bilateral CC and MLO view(s) were taken. Technologist: Antonette Hernandez Systems Architecture Analyst FINDINGS: There are scattered fibroglandular densities. Screening. Digital screening (2D) mammography was performed bilaterally in the CC and MLO projections. Additionally, breast tomosynthesis (3D mammography) was performed bilaterally in the CC and MLO projections. Todays exam was compared to the prior exam/exams. By history, the patient has no complaints of a palpable breast abnormality or other significant breast complaints. The breasts are unchanged in size and shape. There are no miles-soft tissue densities or spiculated masses. There is no internal architectural distortion. There are no suspicious miles-calcific clusters. Skin thickening or nipple retraction is not present. IMPRESSION: BI-RADS Category 2- Benign Findings. There is no evidence of malignant alteration of the breasts. Followup examination recommended in one year. The Volpara volumetric breast density category is B, there are scattered areas of fibroglandular densities. This mammogram was read with the assistance of Kerri dakick,an FDA approved computer aided detection system for mammography. The lifetime Tyrer-Cuzick score is 5.6 % Negative x-ray reports should not delay surgical consultation if a dominant or clinically suspicious mass is present. Not all breast cancers can be identified by mammography. Therefore, we recommend that you continue to perform regular breast self-examination and physical examination and then promptly contact your physician of any concerns or changes. Adenosis and dense breasts may obscure an underlying neoplasm. Assessment: BI-RADS/ACR category 2 mammogram. Benign Findings. Recommendation Routine screening mammogram of both breasts in 1 year. Electronically Signed By: Micky Buchanan DO 09/23/21 0905
== END ==
LOC: M WHC 07:50
PROVIDERS: ATTEND Nurse Practitioner Adult Health
DX: Z12.31 Encounter for screening mammogram for malignant neoplasm of breast (principal)

== ENCOUNTER → 2021-11-25 | Outpatient (CLI) | payer BC ==
[2021-11-25 12:28] LABS: BASO # 0.1 10^3/uL (0.0-0.2); BASO % 0.5 % (0.0-1.0); EOS # 0.3 10^3/uL (0.0-0.5); EOS % 2.7 % (0.0-3.0); HEMATOCRIT 44.6 % (36.0-47.0); HEMOGLOBIN 13.7 g/dl (12.0-15.5); LYMPH # 2.8 10^3/uL (1.5-5.0); LYMPH % 29.5 % (24.0-44.0); MEAN CORPUSCULAR HEMOGLOBIN 27.5 pg (27.0-33.0); MEAN CORPUSCULAR HGB CONC 30.7 g/dl (32.0-36.5); MEAN CORPUSCULAR VOLUME 89.6 fl (80.0-96.0); MONO # 0.8 10^3/uL (0.0-0.8); MONO % 8.5 % (2.0-8.0); NEUTROPHILS # 5.5 10^3/uL (1.5-8.5); NEUTROPHILS % 58.7 % (36.0-66.0); PLATELET COUNT, AUTOMATED 277 10^3/uL (150-450); RED BLOOD COUNT 4.98 10^6/uL (4.00-5.40); WHITE BLOOD COUNT 9.4 10^3/uL (4.0-10.0)
[2021-11-25 12:56] LABS: ERYTHROCYTE SEDIMENTATION RATE 12 mm/hr (0-30)
[2021-11-25 12:59] LABS: ALBUMIN 3.7 GM/DL (3.2-5.2); ALT/SGPT 43 U/L (12-78); BILIRUBIN,TOTAL 0.3 MG/DL (0.2-1.0); BLOOD UREA NITROGEN 24 MG/DL (7-18); CALCIUM LEVEL 9.6 MG/DL (8.8-10.2); CARBON DIOXIDE LEVEL 29 MEQ/L (21-32); CHLORIDE LEVEL 104 MEQ/L (98-107); CREATININE FOR GFR 0.96 MG/DL (0.55-1.30); GLOMERULAR FILTRATION RATE > 60.0 (>39); GLUCOSE, FASTING 110 MG/DL (70-100); POTASSIUM SERUM 4.4 MEQ/L (3.5-5.1); SODIUM LEVEL 141 MEQ/L (136-145); TOTAL PROTEIN 7.4 GM/DL (6.4-8.2)
== END ==
LOC: M WUC 08:54
PROVIDERS: ATTEND Internal Medicine Rheumatology
DX: M05.79 Rheumatoid arthritis with rheumatoid factor of multiple sites without organ or systems involvement (principal); R76.8 Other specified abnormal immunological findings in serum; Z79.899 Other long term (current) drug therapy; H04.129 Dry eye syndrome of unspecified lacrimal gland

== ENCOUNTER → 2022-01-29 | Outpatient (CLI) | payer BC ==
[~2022-01-29] MED LIST changes: -CAND4TAB PO; +CAND4TAB7 PO; +LOSA100T45 PO; -LOSA100T50 PO; +LOSA25TA13 PO; -LOSA25TA14 PO; +LOSA50TA28 PO; -LOSA50TA88 PO
[2022-01-29 11:21] LABS: HEMOGLOBIN A1c 6.6 %
[2022-01-29 11:30] LABS: ALBUMIN 3.7 GM/DL (3.2-5.2); BILIRUBIN,TOTAL 0.4 MG/DL (0.2-1.0); CALCIUM LEVEL 9.9 MG/DL (8.8-10.2); CHOLESTEROL RISK RATIO 2.852 (<5); CREATININE FOR GFR 1.02 MG/DL (0.55-1.30); GLOMERULAR FILTRATION RATE 56.9 (>39); POTASSIUM SERUM 4.2 MEQ/L (3.5-5.1); THYROID STIMULATING HORMONE 1.46 uIU/ML (0.358-3.740); TOTAL 25(OH) VITAMIN D 74.3 NG/ML (30.0-100.0); TOTAL PROTEIN 7.1 GM/DL (6.4-8.2)
[2022-01-29 12:30] LABS: MALB URINE SIEMENS 12.3 MG/L; MAU/CREAT RATIO 7.1 MCG/MG (0.0-30.0)
== END ==
LOC: M WUC 08:08
PROVIDERS: ATTEND Nurse Practitioner Adult Health
DX: E11.9 Type 2 diabetes mellitus without complications (principal); I10 Essential (primary) hypertension; E55.9 Vitamin D deficiency, unspecified; E78.2 Mixed hyperlipidemia; E03.9 Hypothyroidism, unspecified

== ENCOUNTER → 2022-04-18 | Outpatient (CLI) | payer BC ==
[2022-04-18 10:40] LABS: BASO # 0.1 10^3/uL (0.0-0.2); BASO % 0.7 % (0.0-1.0); EOS # 0.3 10^3/uL (0.0-0.5); EOS % 2.8 % (0.0-3.0); HEMATOCRIT 43.7 % (36.0-47.0); HEMOGLOBIN 13.7 g/dl (12.0-15.5); LYMPH # 2.3 10^3/uL (1.5-5.0); LYMPH % 25.8 % (24.0-44.0); MEAN CORPUSCULAR HEMOGLOBIN 28.4 pg (27.0-33.0); MEAN CORPUSCULAR HGB CONC 31.4 g/dl (32.0-36.5); MEAN CORPUSCULAR VOLUME 90.5 fl (80.0-96.0); MONO # 0.8 10^3/uL (0.0-0.8); NEUTROPHILS # 5.4 10^3/uL (1.5-8.5); NEUTROPHILS % 61.4 % (36.0-66.0); PLATELET COUNT, AUTOMATED 262 10^3/uL (150-450); RED BLOOD COUNT 4.83 10^6/uL (4.00-5.40); WHITE BLOOD COUNT 8.9 10^3/uL (4.0-10.0)
[2022-04-18 11:08] LABS: ALBUMIN 3.4 GM/DL (3.2-5.2); BILIRUBIN,TOTAL 0.3 MG/DL (0.2-1.0); C REACTIVE PROTEIN QUANTITATIV 1.3 MG/DL (0.00-0.30); CALCIUM LEVEL 9.8 MG/DL (8.8-10.2); CREATININE FOR GFR 1.04 MG/DL (0.55-1.30); GLOMERULAR FILTRATION RATE 55.6 (>39); POTASSIUM SERUM 4.6 MEQ/L (3.5-5.1)
[2022-04-18 12:29] LABS: ERYTHROCYTE SEDIMENTATION RATE 16 mm/hr (0-30)
== END ==
LOC: M WUC 08:05
PROVIDERS: ATTEND Internal Medicine Rheumatology
DX: M05.79 Rheumatoid arthritis with rheumatoid factor of multiple sites without organ or systems involvement (principal); R76.8 Other specified abnormal immunological findings in serum; Z79.899 Other long term (current) drug therapy

== ENCOUNTER → 2022-08-04 | Outpatient (CLI) | payer BC ==
[2022-08-04 11:07] LABS: MALB URINE SIEMENS 10.1 MG/L; MAU/CREAT RATIO 7.5 MCG/MG (0.0-30.0)
[2022-08-04 11:41] LABS: ALBUMIN 3.6 GM/DL (3.2-5.2); ALT/SGPT 36 U/L (12-78); BILIRUBIN,TOTAL 0.4 MG/DL (0.2-1.0); BLOOD UREA NITROGEN 24 MG/DL (7-18); CALCIUM LEVEL 9.8 MG/DL (8.8-10.2); CARBON DIOXIDE LEVEL 29 MEQ/L (21-32); CHLORIDE LEVEL 105 MEQ/L (98-107); CHOLESTEROL LEVEL 200 MG/DL (<200); CHOLESTEROL RISK RATIO 3.076 (<5); CREATININE FOR GFR 0.94 MG/DL (0.55-1.30); GLOMERULAR FILTRATION RATE > 60.0 (>39); GLUCOSE, FASTING 102 MG/DL (70-100); HDL CHOLESTEROL 65 MG/DL (>40); LDL CHOLESTEROL 113 MG/DL (<100); NON-HDL-C 135 MG/DL; POTASSIUM SERUM 4.6 MEQ/L (3.5-5.1); SODIUM LEVEL 138 MEQ/L (136-145); TOTAL PROTEIN 6.9 GM/DL (6.4-8.2); TRIGLYCERIDES LEVEL 111 MG/DL (<150)
[2022-08-04 12:15] LABS: TOTAL 25(OH) VITAMIN D 75.6 NG/ML (30.0-100.0)
[2022-08-04 12:40] LABS: HEMOGLOBIN A1c 6.6 %
== END ==
LOC: M WUC 08:20
PROVIDERS: ATTEND Nurse Practitioner Adult Health
DX: I10 Essential (primary) hypertension (principal); E11.9 Type 2 diabetes mellitus without complications; E78.2 Mixed hyperlipidemia; E03.9 Hypothyroidism, unspecified; E55.9 Vitamin D deficiency, unspecified

== ENCOUNTER → 2022-11-04 | Outpatient (CLI) | payer BC | LOC: M WHC 11:29 | PROVIDERS: ATTEND Nurse Practitioner Adult Health | DX: Z12.31 Encounter for screening mammogram for malignant neoplasm of breast (principal); N63.14 Unspecified lump in the right breast, lower inner quadrant ==

== ENCOUNTER → 2022-11-10 | Outpatient (CLI) | payer BC | LOC: M WHC 11:21 | PROVIDERS: ATTEND Nurse Practitioner Adult Health | DX: Z12.31 Encounter for screening mammogram for malignant neoplasm of breast (principal); N63.14 Unspecified lump in the right breast, lower inner quadrant ==

== ENCOUNTER → 2022-11-27 | Outpatient (CLI) | payer BC ==
[~2022-11-27] MED LIST changes: +**SFHN** LIDOCAINE 1% MDV 20ML VIAL ONE; +**SFHN** SODIUM BICARBONATE 8.4% 10MEQ 10ML VIAL ONE; +B-122500 PO; +HYDR200T3 PO; +PROB250C PO; +ZETI10TA16 PO
[2022-11-27 13:50] VITALS: BP 150/72
== END ==
LOC: M WHCPRO 11:54
PROVIDERS: ATTEND Nurse Practitioner Adult Health
DX: C50.211 Malignant neoplasm of upper-inner quadrant of right female breast (principal); R92.8 Other abnormal and inconclusive findings on diagnostic imaging of breast
CPT/HCPCS: 19083; 77065; 88305; G0279

== ENCOUNTER → 2022-12-04 | Outpatient (CLI) | payer BC ==
[~2022-12-04] MED LIST changes: -**SFHN** LIDOCAINE 1% MDV 20ML VIAL ONE; -**SFHN** SODIUM BICARBONATE 8.4% 10MEQ 10ML VIAL ONE
[2022-12-04 14:15] LABS: CALCIUM LEVEL 9.9 MG/DL (8.3-10.6); CREATININE FOR GFR 1.01 MG/DL (0.55-1.30); GLOMERULAR FILTRATION RATE 57.4 (>39); POTASSIUM SERUM 4.6 MMOL/L (3.5-5.1)
== END ==
LOC: M PLALAB 11:38
PROVIDERS: ATTEND Surgery
DX: C50.311 Malignant neoplasm of lower-inner quadrant of right female breast (principal)

== ENCOUNTER → 2022-12-05 | Outpatient (CLI) | payer BC ==
[~2022-12-05] MED LIST changes: +PROHANCE 279.3MG/ML 15ML VIAL As Ordered ONE; +PROHANCE 279.3MG/ML 5ML VIAL As Ordered ONE
== END ==
LOC: M RAD 14:30
PROVIDERS: ATTEND Surgery
DX: C50.311 Malignant neoplasm of lower-inner quadrant of right female breast (principal)
CPT/HCPCS: A9576 ×2

== ENCOUNTER → 2022-12-18 | Outpatient (CLI) | payer BC ==
[~2022-12-18] MED LIST changes: +ASPI81CH33 PO; -PROHANCE 279.3MG/ML 15ML VIAL As Ordered ONE; -PROHANCE 279.3MG/ML 5ML VIAL As Ordered ONE
== END ==
LOC: M LABSMTC 09:47
PROVIDERS: ATTEND Anesthesiology
DX: Z11.52 Encounter for screening for COVID-19 (principal)

== ENCOUNTER → 2022-12-18 | Outpatient (CLI) | payer BC ==
[~2022-12-18] MED LIST changes: +ONDA-84 PO; +PROC10TA5 PO
== END ==
LOC: M CARPUL 10:06
PROVIDERS: ATTEND Internal Medicine Medical Oncology
DX: I42.2 Other hypertrophic cardiomyopathy (principal); I50.1 Left ventricular failure, unspecified; I35.8 Other nonrheumatic aortic valve disorders; I34.81 Nonrheumatic mitral (valve) annulus calcification; I31.39 Other pericardial effusion (noninflammatory); C50.911 Malignant neoplasm of unspecified site of right female breast

== ENCOUNTER → 2022-12-22 | Outpatient (CLI) | payer BC ==
[~2022-12-22] MED LIST changes: +FERR325T3 PO; +HYDR200T3; +LIDOCAINE 1% MDV 20ML VIAL As Ordered ONE; +MIDAZOLAM INJ 2MG/2ML VIAL As Ordered ONE; +NS 1,000 ML IV SCH; +VANCOMYCIN 1000MG/20ML VIAL As Ordered ONE; +VANCOMYCIN HCL 1,000 MG, VIAL MATE ADAPTER 1 EACH in NS 250 ML IV ONE; +diphenhydrAMINE 50MG/ML VIAL As Ordered ONE; +fentaNYL 100 MCG/2 ML INJECTION As Ordered ONE
[2022-12-22 11:21] VITALS: BP 164/70
== END ==
LOC: M IRPRO 06:20
PROVIDERS: ATTEND Internal Medicine Medical Oncology
DX: C50.911 Malignant neoplasm of unspecified site of right female breast (principal)
CPT/HCPCS: 36561; 99152; 99153; C1769; C1788; C1894; J1200; J1642; J1644; J2250; J3010; J3370

== ENCOUNTER → 2023-01-06 | Outpatient (POV) | payer BC, MEDICARE ==
[~2023-01-06] VITALS: Ht 162.6 cm; Wt 125.0 kg
[~2023-01-06] MED LIST changes: -LIDOCAINE 1% MDV 20ML VIAL As Ordered ONE; -MIDAZOLAM INJ 2MG/2ML VIAL As Ordered ONE; -NS 1,000 ML IV SCH; -VANCOMYCIN 1000MG/20ML VIAL As Ordered ONE; -VANCOMYCIN HCL 1,000 MG, VIAL MATE ADAPTER 1 EACH in NS 250 ML IV ONE; -diphenhydrAMINE 50MG/ML VIAL As Ordered ONE; -fentaNYL 100 MCG/2 ML INJECTION As Ordered ONE
[2023-01-06 11:05] VITALS: BP 150/68
== END ==
LOC: M IRPOV 10:52
PROVIDERS: ATTEND Radiology Diagnostic Radiology
DX: Z45.2 Encounter for adjustment and management of vascular access device (principal); Z88.0 Allergy status to penicillin; Z91.030 Bee allergy status

== ENCOUNTER → 2023-01-22 | Outpatient (CLI) | payer BC ==
[2023-01-22 11:47] LABS: BASO % 1.4 % (0.0-1.0); EOS % 2.8 % (0.0-3.0); HEMATOCRIT 33.6 % (36.0-47.0); HEMOGLOBIN 10.2 g/dl (12.0-15.5); LYMPH # 0.4 10^3/uL (1.5-5.0); LYMPH % 50.7 % (24.0-44.0); MEAN CORPUSCULAR HEMOGLOBIN 26.8 pg (27.0-33.0); MEAN CORPUSCULAR HGB CONC 30.4 g/dl (32.0-36.5); MEAN CORPUSCULAR VOLUME 88.2 fl (80.0-96.0); MONO # 0.2 10^3/uL (0.0-0.8); MONO % 29.6 % (2.0-8.0); NEUTROPHILS % 14.1 % (36.0-66.0); PLATELET COUNT, AUTOMATED 168 10^3/uL (150-450); RED BLOOD COUNT 3.81 10^6/uL (4.00-5.40)
[2023-01-22 11:57] LABS: NEUTROPHILS # 0.1 10^3/uL (1.5-8.5)
[2023-01-22 12:00] LABS: URIC ACID 7.4 MG/DL (3.1-7.8)
[2023-01-22 12:03] LABS: ALKALINE PHOSPHATASE 67 U/L (46-116); ALT/SGPT 24 U/L (7.0-40); AST/SGOT 9 U/L (<34); BILIRUBIN,TOTAL 0.3 MG/DL (0.3-1.2); BLOOD UREA NITROGEN 13 MG/DL (9-23); CALCIUM LEVEL 8.5 MG/DL (8.3-10.6); CARBON DIOXIDE LEVEL 32 MMOL/L (20-31); CHLORIDE LEVEL 106 MMOL/L (98-107); CREATININE FOR GFR 0.82 MG/DL (0.55-1.30); GLOMERULAR FILTRATION RATE > 60.0 (>39); GLUCOSE, FASTING 127 MG/DL (74-106); POTASSIUM SERUM 4.2 MMOL/L (3.5-5.1); SODIUM LEVEL 143 MMOL/L (136-145); TOTAL PROTEIN 5.7 G/DL (5.7-8.2)
[2023-01-22 12:08] LABS: WHITE BLOOD COUNT 0.7 10^3/uL (4.0-10.0)
[2023-01-22 12:43] LABS: ERYTHROCYTE SEDIMENTATION RATE 26 mm/hr (0-30)
[2023-01-23 21:07] LABS: ANA (HEP2) Negative (.)
== END ==
LOC: M WUC 09:54
PROVIDERS: ATTEND Internal Medicine Rheumatology
DX: M05.79 Rheumatoid arthritis with rheumatoid factor of multiple sites without organ or systems involvement (principal); R76.8 Other specified abnormal immunological findings in serum; Z79.899 Other long term (current) drug therapy

== ENCOUNTER → 2023-03-17 | Outpatient (CLI) | payer BC | LOC: M WHC 08:53 | PROVIDERS: ATTEND Internal Medicine Medical Oncology | DX: C50.911 Malignant neoplasm of unspecified site of right female breast (principal) ==

== ENCOUNTER → 2023-05-27 | Outpatient (CLI) | payer BC ==
[~2023-05-27] MED LIST changes: +AZIT-12 PO; +GLIP5TAB8; -HYDR200T3; -HYDR200T3 PO; +HYDR200T46; +HYDR200T46 PO; -LOSA100T45 PO; +LOSA100T46 PO; +VITA100T55 PO
== END ==
LOC: M WHC 09:23
PROVIDERS: ATTEND Surgery
DX: C50.911 Malignant neoplasm of unspecified site of right female breast (principal)
CPT/HCPCS: 76642; 77065; G0279

== ENCOUNTER 2023-07-01 11:22 | Emergency (ER) | payer BC ==
[~2023-07-01] VITALS: Ht 162.6 cm; Wt 90.0 kg
[~2023-07-01 11:22] MED LIST changes: -GLIP5TAB8; +GLIP5TAB8 PO
[2023-07-01 11:24] VITALS: TEMP 98.4
[2023-07-01] MEDS ORDERED: FERR1TAB8 PO (12:35)
[2023-07-01] MEDS ORDERED: DICL100G10 TOP (12:35)
[2023-07-01 16:58] VITALS: BP 188/90; O2SAT 99
== END 2023-07-01 16:59 | disposition home or self-care (01) ==
LOC: M ED 11:22
DX: S76.212A Strain of adductor muscle, fascia and tendon of left thigh, initial encounter (principal); I10 Essential (primary) hypertension; E11.9 Type 2 diabetes mellitus without complications; C50.919 Malignant neoplasm of unspecified site of unspecified female breast; Z88.0 Allergy status to penicillin; Z91.030 Bee allergy status; Z79.82 Long term (current) use of aspirin; Z79.811 Long term (current) use of aromatase inhibitors; Z79.899 Other long term (current) drug therapy

== ENCOUNTER → 2023-07-31 | Outpatient (CLI) | payer BC ==
[~2023-07-31] MED LIST changes: +DICL100G10 TOP; +EZET10TA58 PO; +FERR1TAB8 PO; -ZETI10TA16 PO
== END ==
LOC: M ONCR 07:41
PROVIDERS: ATTEND General Practice
DX: C50.311 Malignant neoplasm of lower-inner quadrant of right female breast (principal); Z71.2 Person consulting for explanation of examination or test findings; Z98.890 Other specified postprocedural states; Z79.82 Long term (current) use of aspirin; Z79.84 Long term (current) use of oral hypoglycemic drugs; Z79.890 Hormone replacement therapy; Z79.899 Other long term (current) drug therapy; Z87.891 Personal history of nicotine dependence; Z80.0 Family history of malignant neoplasm of digestive organs; Z80.8 Family history of malignant neoplasm of other organs or systems; Z88.0 Allergy status to penicillin; Z91.030 Bee allergy status; Z92.21 Personal history of antineoplastic chemotherapy

== ENCOUNTER → 2023-07-31 | Outpatient (REF) | payer BC ==
[2023-07-31 10:36] LABS: BASO % 0.4 % (0.0-1.0); EOS # 0.1 10^3/uL (0.0-0.5); EOS % 1.5 % (0.0-3.0); HEMATOCRIT 33.5 % (36.0-47.0); HEMOGLOBIN 10.2 g/dl (12.0-15.5); LYMPH % 11.3 % (24.0-44.0); MEAN CORPUSCULAR HEMOGLOBIN 30.1 pg (27.0-33.0); MEAN CORPUSCULAR HGB CONC 30.4 g/dl (32.0-36.5); MEAN CORPUSCULAR VOLUME 98.8 fl (80.0-96.0); MONO # 0.5 10^3/uL (0.0-0.8); MONO % 6.1 % (2.0-8.0); NEUTROPHILS # 6.7 10^3/uL (1.5-8.5); NEUTROPHILS % 80.2 % (36.0-66.0); PLATELET COUNT, AUTOMATED 303 10^3/uL (150-450); RED BLOOD COUNT 3.39 10^6/uL (4.00-5.40); WHITE BLOOD COUNT 8.4 10^3/uL (4.0-10.0)
[2023-07-31 10:51] LABS: ALBUMIN 3.2 G/DL (3.2-5.2); ALKALINE PHOSPHATASE 62 U/L (46-116); ALT/SGPT 23 U/L (7.0-40); AST/SGOT 14 U/L (<34); BILIRUBIN,TOTAL 0.2 MG/DL (0.3-1.2); BLOOD UREA NITROGEN 15 MG/DL (9-23); CALCIUM LEVEL 9.3 MG/DL (8.3-10.6); CARBON DIOXIDE LEVEL 29 MMOL/L (20-31); CHLORIDE LEVEL 104 MMOL/L (98-107); CREATININE FOR GFR 0.83 MG/DL (0.55-1.30); GLOMERULAR FILTRATION RATE > 60.0 (>39); GLUCOSE, FASTING 101 MG/DL (74-106); POTASSIUM SERUM 4.2 MMOL/L (3.5-5.1); SODIUM LEVEL 140 MMOL/L (136-145); TOTAL PROTEIN 6.7 G/DL (5.7-8.2)
[2023-07-31 10:52] LABS: ERYTHROCYTE SEDIMENTATION RATE 85 mm/hr (0-30)
== END ==
LOC: M LAB REF 09:42
PROVIDERS: ATTEND Internal Medicine Rheumatology
DX: M05.79 Rheumatoid arthritis with rheumatoid factor of multiple sites without organ or systems involvement (principal); Z79.899 Other long term (current) drug therapy; M1A.0720 Idiopathic chronic gout, left ankle and foot, without tophus (tophi); H04.129 Dry eye syndrome of unspecified lacrimal gland; R76.8 Other specified abnormal immunological findings in serum

== ENCOUNTER → 2023-08-26 | Outpatient (REF) | payer BC ==
[2023-08-27 08:49] LABS: BASO % 0.3 % (0.0-1.0); EOS # 0.1 10^3/uL (0.0-0.5); EOS % 1.8 % (0.0-3.0); HEMATOCRIT 36.7 % (36.0-47.0); HEMOGLOBIN 11.5 g/dl (12.0-15.5); LYMPH # 0.8 10^3/uL (1.5-5.0); LYMPH % 10.4 % (24.0-44.0); MEAN CORPUSCULAR HGB CONC 31.3 g/dl (32.0-36.5); MEAN CORPUSCULAR VOLUME 92.7 fl (80.0-96.0); MONO # 0.5 10^3/uL (0.0-0.8); MONO % 5.7 % (2.0-8.0); NEUTROPHILS # 6.4 10^3/uL (1.5-8.5); NEUTROPHILS % 81.7 % (36.0-66.0); PLATELET COUNT, AUTOMATED 280 10^3/uL (150-450); RED BLOOD COUNT 3.96 10^6/uL (4.00-5.40); WHITE BLOOD COUNT 7.9 10^3/uL (4.0-10.0)
[2023-08-27 09:16] LABS: ERYTHROCYTE SEDIMENTATION RATE 81 mm/hr (0-30)
[2023-08-27 09:23] LABS: ALBUMIN 3.3 G/DL (3.2-5.2); ALKALINE PHOSPHATASE 73 U/L (46-116); ALT/SGPT 24 U/L (7.0-40); AST/SGOT 19 U/L (<34); BILIRUBIN,TOTAL 0.3 MG/DL (0.3-1.2); BLOOD UREA NITROGEN 15 MG/DL (9-23); CARBON DIOXIDE LEVEL 29 MMOL/L (20-31); CHLORIDE LEVEL 107 MMOL/L (98-107); CREATININE FOR GFR 0.85 MG/DL (0.55-1.30); GLOMERULAR FILTRATION RATE > 60.0 (>39); GLUCOSE, FASTING 114 MG/DL (74-106); POTASSIUM SERUM 4.1 MMOL/L (3.5-5.1); SODIUM LEVEL 144 MMOL/L (136-145); TOTAL PROTEIN 6.6 G/DL (5.7-8.2)
== END ==
LOC: M LAB REF 09:37
PROVIDERS: ATTEND Internal Medicine Rheumatology
DX: M05.79 Rheumatoid arthritis with rheumatoid factor of multiple sites without organ or systems involvement (principal); R76.8 Other specified abnormal immunological findings in serum; H04.129 Dry eye syndrome of unspecified lacrimal gland; L40.8 Other psoriasis; Z79.899 Other long term (current) drug therapy; M1A.0720 Idiopathic chronic gout, left ankle and foot, without tophus (tophi)

== ENCOUNTER → 2023-08-26 | Outpatient (REF) | payer BC ==
[2023-08-27 09:55] LABS: CHOLESTEROL RISK RATIO 2.82 (<5); HDL CHOLESTEROL 65.2 MG/DL (>40); LDL CHOLESTEROL 98.6 MG/DL (<100); NON-HDL-C 118.8 MG/DL; THYROID STIMULATING HORMONE 1.906 uIU/ML (0.55-4.78); TOTAL 25(OH) VITAMIN D 80.5 NG/ML (20.0-100.0)
[2023-08-27 09:58] LABS: HEMOGLOBIN A1c 5.5 % (4.0-6.0)
== END ==
LOC: M LAB REF 09:42
PROVIDERS: ATTEND Nurse Practitioner Adult Health
DX: E11.9 Type 2 diabetes mellitus without complications (principal); E55.9 Vitamin D deficiency, unspecified; E03.9 Hypothyroidism, unspecified

== ENCOUNTER 2023-08-28 09:49 | Outpatient (RCR) | payer BC ==
[~2023-08-28 09:49] MED LIST changes: +GLIP5TAB17 PO; -GLIP5TAB8 PO
== END 2023-09-22 ==
LOC: M ONCR 09:49
PROVIDERS: ATTEND General Practice
DX: Z51.0 Encounter for antineoplastic radiation therapy (principal); C50.311 Malignant neoplasm of lower-inner quadrant of right female breast

== ENCOUNTER → 2023-10-19 | Outpatient (CLI) | payer BC ==
[~2023-10-19] VITALS: Ht 163.8 cm; Wt 94.1 kg
[~2023-10-19] MED LIST changes: +ETAN50PE SQ; +LIDOCAINE W/EPINEPHRINE 1% 20ML VIAL As Ordered ONE; +MIDAZOLAM INJ 2MG/2ML VIAL As Ordered ONE; +NS 1,000 ML IV SCH; +PYRI25TA2 PO; +VANCOMYCIN 1000MG/20ML VIAL As Ordered ONE; +VANCOMYCIN HCL 1,000 MG, VIAL MATE ADAPTER 1 EACH in D5W 250 ML IV ONE; +ceFAZolin SOD 2 GM in IV 1 EA IV ONE; +fentaNYL 100 MCG/2 ML INJECTION As Ordered ONE
[2023-10-19 16:30] VITALS: BP 169/72; O2SAT 98
== END ==
LOC: M IRPRO 13:29
PROVIDERS: ATTEND Internal Medicine Medical Oncology
DX: C50.911 Malignant neoplasm of unspecified site of right female breast (principal)
CPT/HCPCS: 36590; 99152; J2250; J3010; J3370

== ENCOUNTER → 2023-10-29 | Outpatient (CLI) | payer BC ==
[~2023-10-29] MED LIST changes: -LIDOCAINE W/EPINEPHRINE 1% 20ML VIAL As Ordered ONE; -MIDAZOLAM INJ 2MG/2ML VIAL As Ordered ONE; -NS 1,000 ML IV SCH; -VANCOMYCIN 1000MG/20ML VIAL As Ordered ONE; -VANCOMYCIN HCL 1,000 MG, VIAL MATE ADAPTER 1 EACH in D5W 250 ML IV ONE; -ceFAZolin SOD 2 GM in IV 1 EA IV ONE; -fentaNYL 100 MCG/2 ML INJECTION As Ordered ONE
[2023-10-29 18:15] LABS: BASO % 0.5 % (0.0-1.0); EOS # 0.2 10^3/uL (0.0-0.5); EOS % 2.1 % (0.0-3.0); HEMATOCRIT 36.9 % (36.0-47.0); HEMOGLOBIN 10.8 g/dl (12.0-15.5); LYMPH # 1.3 10^3/uL (1.5-5.0); LYMPH % 18.1 % (24.0-44.0); MEAN CORPUSCULAR HEMOGLOBIN 26.7 pg (27.0-33.0); MEAN CORPUSCULAR HGB CONC 29.3 g/dl (32.0-36.5); MEAN CORPUSCULAR VOLUME 91.1 fl (80.0-96.0); MONO # 0.6 10^3/uL (0.0-0.8); MONO % 8.2 % (2.0-8.0); NEUTROPHILS # 5.2 10^3/uL (1.5-8.5); PLATELET COUNT, AUTOMATED 321 10^3/uL (150-450); RED BLOOD COUNT 4.05 10^6/uL (4.00-5.40); WHITE BLOOD COUNT 7.3 10^3/uL (4.0-10.0)
[2023-10-29 18:24] LABS: C REACTIVE PROTEIN QUANTITATIV 1.2 MG/DL (<1.0)
[2023-10-29 18:26] LABS: ALBUMIN 3.5 G/DL (3.2-5.2); BILIRUBIN,TOTAL 0.2 MG/DL (0.3-1.2); CALCIUM LEVEL 9.1 MG/DL (8.3-10.6); CREATININE FOR GFR 1.04 MG/DL (0.55-1.30); GLOMERULAR FILTRATION RATE 55.3 (>39); POTASSIUM SERUM 4.3 MMOL/L (3.5-5.1); TOTAL PROTEIN 6.6 G/DL (5.7-8.2)
[2023-10-29 18:36] LABS: ERYTHROCYTE SEDIMENTATION RATE 40 mm/hr (0-30)
== END ==
LOC: M WUC 12:00
PROVIDERS: ATTEND Internal Medicine Rheumatology
DX: M05.79 Rheumatoid arthritis with rheumatoid factor of multiple sites without organ or systems involvement (principal); R76.8 Other specified abnormal immunological findings in serum; Z79.899 Other long term (current) drug therapy; H04.129 Dry eye syndrome of unspecified lacrimal gland; M1A.0720 Idiopathic chronic gout, left ankle and foot, without tophus (tophi)

== ENCOUNTER → 2023-11-05 | Outpatient (REF) | payer BC | LOC: M SFHCRHEU 09:35 | PROVIDERS: ATTEND Internal Medicine Rheumatology | DX: Z53.9 Procedure and treatment not carried out, unspecified reason (principal) ==

== ENCOUNTER → 2023-12-29 | Outpatient (CLI) | payer BC | LOC: M WHC 10:56 | PROVIDERS: ATTEND Internal Medicine Medical Oncology | DX: Z12.31 Encounter for screening mammogram for malignant neoplasm of breast (principal); Z85.3 Personal history of malignant neoplasm of breast | CPT/HCPCS: 77066; G0279 ==

== ENCOUNTER → 2024-01-22 | Outpatient (CLI) | payer BC ==
[2024-01-22 11:28] LABS: HEMOGLOBIN A1c 6.1 % (4.0-6.0)
[2024-01-22 11:39] LABS: ALBUMIN 3.5 G/DL (3.2-5.2); BILIRUBIN,TOTAL 0.4 MG/DL (0.3-1.2); CALCIUM LEVEL 9.4 MG/DL (8.3-10.6); CHOLESTEROL RISK RATIO 2.6 (<5); CREATININE FOR GFR 1.14 MG/DL (0.55-1.30); GLOMERULAR FILTRATION RATE 49.7 (>39); HDL CHOLESTEROL 65.2 MG/DL (>40); LDL CHOLESTEROL 84.4 MG/DL (<100); NON-HDL-C 104.8 MG/DL; POTASSIUM SERUM 4.2 MMOL/L (3.5-5.1); TOTAL PROTEIN 6.6 G/DL (5.7-8.2)
[2024-01-22 11:42] LABS: TOTAL 25(OH) VITAMIN D 77.6 NG/ML (20.0-100.0)
[2024-01-22 11:55] LABS: CREATININE, URINE 326.9 MG/DL; MAU/CREAT RATIO 10.7 MCG/MG (0.0-30.0)
== END ==
LOC: M WUC 09:02
PROVIDERS: ATTEND Nurse Practitioner Adult Health
DX: E11.9 Type 2 diabetes mellitus without complications (principal); E55.9 Vitamin D deficiency, unspecified; E78.2 Mixed hyperlipidemia

== ENCOUNTER → 2024-03-02 | Outpatient (CLI) | payer BC | LOC: M RAD 08:02 | PROVIDERS: ATTEND Nurse Practitioner Adult Health | DX: R10.11 Right upper quadrant pain (principal) | CPT/HCPCS: 78227; A9537 ==

== ENCOUNTER → 2024-03-03 | Outpatient (CLI) | payer BC ==
[2024-03-03 12:36] LABS: FREE T4 1.15 NG/DL (0.89-1.76); THYROID STIMULATING HORMONE 1.138 uIU/ML (0.55-4.78)
== END ==
LOC: M WUC 09:02
PROVIDERS: ATTEND Nurse Practitioner Adult Health
DX: E03.9 Hypothyroidism, unspecified (principal)

== ENCOUNTER → 2024-03-03 | Outpatient (CLI) | payer BC ==
[2024-03-03 12:29] LABS: BASO % 0.4 % (0.0-1.0); EOS # 0.1 10^3/uL (0.0-0.5); EOS % 1.9 % (0.0-3.0); HEMATOCRIT 32.1 % (36.0-47.0); HEMOGLOBIN 9.7 g/dl (12.0-15.5); LYMPH # 1.6 10^3/uL (1.5-5.0); LYMPH % 21.4 % (24.0-44.0); MEAN CORPUSCULAR HEMOGLOBIN 25.9 pg (27.0-33.0); MEAN CORPUSCULAR HGB CONC 30.2 g/dl (32.0-36.5); MEAN CORPUSCULAR VOLUME 85.8 fl (80.0-96.0); MONO # 0.5 10^3/uL (0.0-0.8); MONO % 6.6 % (2.0-8.0); NEUTROPHILS % 69.6 % (36.0-66.0); PLATELET COUNT, AUTOMATED 289 10^3/uL (150-450); RED BLOOD COUNT 3.74 10^6/uL (4.00-5.40); WHITE BLOOD COUNT 7.2 10^3/uL (4.0-10.0)
[2024-03-03 12:33] LABS: URIC ACID 7.3 MG/DL (3.1-7.8)
[2024-03-03 12:36] LABS: ALBUMIN 3.2 G/DL (3.2-5.2); ALKALINE PHOSPHATASE 60 U/L (46-116); ALT/SGPT 29 U/L (7.0-40); AST/SGOT 16 U/L (<34); BILIRUBIN,TOTAL 0.2 MG/DL (0.3-1.2); BLOOD UREA NITROGEN 17 MG/DL (9-23); CALCIUM LEVEL 9.3 MG/DL (8.3-10.6); CARBON DIOXIDE LEVEL 29 MMOL/L (20-31); CHLORIDE LEVEL 108 MMOL/L (98-107); CREATININE FOR GFR 0.88 MG/DL (0.55-1.30); GLOMERULAR FILTRATION RATE > 60.0 (>39); GLUCOSE, FASTING 142 MG/DL (74-106); POTASSIUM SERUM 4.1 MMOL/L (3.5-5.1); SODIUM LEVEL 143 MMOL/L (136-145); TOTAL PROTEIN 6.2 G/DL (5.7-8.2)
[2024-03-03 12:53] LABS: ERYTHROCYTE SEDIMENTATION RATE 39 mm/hr (0-30)
== END ==
LOC: M WUC 08:59
PROVIDERS: ATTEND Internal Medicine Rheumatology
DX: M05.79 Rheumatoid arthritis with rheumatoid factor of multiple sites without organ or systems involvement (principal); R76.8 Other specified abnormal immunological findings in serum; H04.123 Dry eye syndrome of bilateral lacrimal glands; L40.8 Other psoriasis; M1A.0720 Idiopathic chronic gout, left ankle and foot, without tophus (tophi); Z79.899 Other long term (current) drug therapy

== ENCOUNTER → 2024-03-03 | Outpatient (CLI) | payer BC | LOC: M ONCR 09:54 | PROVIDERS: ATTEND General Practice | DX: C50.311 Malignant neoplasm of lower-inner quadrant of right female breast (principal); R92.313 Mammographic fatty tissue density, bilateral breasts; Z71.2 Person consulting for explanation of examination or test findings; Z87.891 Personal history of nicotine dependence; Z79.82 Long term (current) use of aspirin; Z79.84 Long term (current) use of oral hypoglycemic drugs; Z79.899 Other long term (current) drug therapy; Z88.0 Allergy status to penicillin; Z88.1 Allergy status to other antibiotic agents; Z91.030 Bee allergy status; Z92.21 Personal history of antineoplastic chemotherapy; Z92.3 Personal history of irradiation ==

== ENCOUNTER → 2024-06-03 | Outpatient (CLI) | payer BC ==
[~2024-06-03] MED LIST changes: +PHOS1TAB3 PO; +biotin PO
[2024-06-03 15:04] LABS: BASO % 0.4 % (0.0-1.0); EOS # 0.1 10^3/uL (0.0-0.5); EOS % 1.7 % (0.0-3.0); HEMOGLOBIN 12.2 g/dl (12.0-15.5); LYMPH # 1.4 10^3/uL (1.5-5.0); LYMPH % 17.6 % (24.0-44.0); MEAN CORPUSCULAR HGB CONC 30.5 g/dl (32.0-36.5); MEAN CORPUSCULAR VOLUME 88.5 fl (80.0-96.0); MONO # 0.6 10^3/uL (0.0-0.8); MONO % 7.6 % (2.0-8.0); NEUTROPHILS # 5.6 10^3/uL (1.5-8.5); NEUTROPHILS % 72.6 % (36.0-66.0); PLATELET COUNT, AUTOMATED 234 10^3/uL (150-450); RED BLOOD COUNT 4.52 10^6/uL (4.00-5.40); WHITE BLOOD COUNT 7.8 10^3/uL (4.0-10.0)
[2024-06-03 15:09] LABS: ALBUMIN 3.9 G/DL (3.2-5.2); ALKALINE PHOSPHATASE 71 U/L (46-116); ALT/SGPT 29 U/L (7.0-40); AST/SGOT 15 U/L (<34); BILIRUBIN,TOTAL 0.3 MG/DL (0.3-1.2); BLOOD UREA NITROGEN 16 MG/DL (9-23); CARBON DIOXIDE LEVEL 31 MMOL/L (20-31); CHLORIDE LEVEL 104 MMOL/L (98-107); CREATININE FOR GFR 0.86 MG/DL (0.55-1.30); GLOMERULAR FILTRATION RATE > 60.0 (>39); GLUCOSE, FASTING 94 MG/DL (74-106); POTASSIUM SERUM 4.3 MMOL/L (3.5-5.1); SODIUM LEVEL 140 MMOL/L (136-145); TOTAL PROTEIN 6.7 G/DL (5.7-8.2)
[2024-06-03 15:11] LABS: ERYTHROCYTE SEDIMENTATION RATE 35 mm/hr (0-30)
== END ==
LOC: M WUC 09:48
PROVIDERS: ATTEND Internal Medicine Rheumatology
DX: M05.79 Rheumatoid arthritis with rheumatoid factor of multiple sites without organ or systems involvement (principal); R76.8 Other specified abnormal immunological findings in serum; Z79.899 Other long term (current) drug therapy; H04.129 Dry eye syndrome of unspecified lacrimal gland; M1A.0720 Idiopathic chronic gout, left ankle and foot, without tophus (tophi); L40.8 Other psoriasis

== ENCOUNTER → 2024-06-09 | Outpatient (REF) | payer BC | LOC: M SFHCRHEU 09:35 | PROVIDERS: ATTEND Internal Medicine Rheumatology | DX: L40.8 Other psoriasis (principal); Z53.9 Procedure and treatment not carried out, unspecified reason ==

== ENCOUNTER 2024-07-20 08:23 | Day surgery (SDC) | payer BC ==
[~2024-07-20] VITALS: Ht 162.6 cm; Wt 98.9 kg
[~2024-07-20 08:23] MED LIST changes: +BIOT1CAP2 PO; +GLIP10TA6 PO
[2024-07-20] MEDS ORDERED: propofoL 200 MG/20 ML VIAL As Ordered ONE (09:09)
[2024-07-20] MEDS ORDERED: LIDOCAINE 2% 100MG/5ML SDV (FOR ANES.) As Ordered ONE (09:09)
[2024-07-20] MEDS: NS 1,000 ML IV ONE (09:09)
[2024-07-20 10:30] VITALS: BP 138/63; TEMP 96.8; O2SAT 95
== END 2024-07-20 10:44 | disposition home or self-care (01) ==
LOC: M OPP 08:23
PROVIDERS: ATTEND Internal Medicine Gastroenterology
DX: K63.5 Polyp of colon (principal); K64.0 First degree hemorrhoids; K57.30 Diverticulosis of large intestine without perforation or abscess without bleeding; D50.9 Iron deficiency anemia, unspecified; K44.9 Diaphragmatic hernia without obstruction or gangrene; K31.89 Other diseases of stomach and duodenum; K29.80 Duodenitis without bleeding; E03.9 Hypothyroidism, unspecified; E11.9 Type 2 diabetes mellitus without complications; Z79.82 Long term (current) use of aspirin; Z79.890 Hormone replacement therapy; Z79.899 Other long term (current) drug therapy; Z88.0 Allergy status to penicillin; Z91.030 Bee allergy status

== ENCOUNTER → 2024-07-27 | Outpatient (CLI) | payer BC ==
[2024-07-27 10:41] LABS: ALBUMIN 3.8 G/DL (3.2-5.2); ALKALINE PHOSPHATASE 70 U/L (46-116); ALT/SGPT 30 U/L (7.0-40); AST/SGOT 15 U/L (<34); BILIRUBIN,TOTAL 0.3 MG/DL (0.3-1.2); BLOOD UREA NITROGEN 18 MG/DL (9-23); CALCIUM LEVEL 9.2 MG/DL (8.3-10.6); CARBON DIOXIDE LEVEL 31 MMOL/L (20-31); CHLORIDE LEVEL 107 MMOL/L (98-107); CHOLESTEROL LEVEL 206 MG/DL (<200); CHOLESTEROL RISK RATIO 3.23 (<5); CREATININE FOR GFR 0.87 MG/DL (0.55-1.30); GLOMERULAR FILTRATION RATE > 60.0 (>39); GLUCOSE, FASTING 79 MG/DL (74-106); HDL CHOLESTEROL 63.6 MG/DL (>40); LDL CHOLESTEROL 117.6 MG/DL (<100); MAGNESIUM LEVEL 1.9 MG/DL (1.8-2.4); NON-HDL-C 142.4 MG/DL; POTASSIUM SERUM 3.8 MMOL/L (3.5-5.1); SODIUM LEVEL 142 MMOL/L (136-145); TOTAL PROTEIN 7.1 G/DL (5.7-8.2); TRIGLYCERIDES LEVEL 124 MG/DL (<150)
[2024-07-27 10:44] LABS: FREE T4 1.55 NG/DL (0.89-1.76)
[2024-07-27 10:45] LABS: THYROID STIMULATING HORMONE 0.582 uIU/ML (0.55-4.78)
[2024-07-27 11:09] LABS: MAU/CREAT RATIO 5.8 MCG/MG (0.0-30.0)
== END ==
LOC: M WUC 08:26
PROVIDERS: ATTEND Nurse Practitioner Adult Health
DX: E78.2 Mixed hyperlipidemia (principal); E03.9 Hypothyroidism, unspecified; E11.9 Type 2 diabetes mellitus without complications

== ENCOUNTER → 2024-09-13 | Outpatient (CLI) | payer BC, MEDICARE ==
[~2024-09-13] MED LIST changes: +GLIP10TA15 PO; -GLIP10TA6 PO
== END ==
LOC: M ONCR 08:43
PROVIDERS: ATTEND General Practice
DX: Z08 Encounter for follow-up examination after completed treatment for malignant neoplasm (principal); Z85.3 Personal history of malignant neoplasm of breast; Z98.890 Other specified postprocedural states; Z92.21 Personal history of antineoplastic chemotherapy; Z92.3 Personal history of irradiation; Z87.891 Personal history of nicotine dependence; Z88.0 Allergy status to penicillin; Z88.1 Allergy status to other antibiotic agents; Z91.030 Bee allergy status; Z79.84 Long term (current) use of oral hypoglycemic drugs; Z79.899 Other long term (current) drug therapy; Z79.82 Long term (current) use of aspirin; Z79.890 Hormone replacement therapy

== ENCOUNTER → 2024-12-07 | Outpatient (CLI) | payer BC ==
[~2024-12-07] MED LIST changes: +OMEP40CA5
[2024-12-07 13:05] LABS: BASO % 0.4 % (0.0-1.0); EOS # 0.2 10^3/uL (0.0-0.5); EOS % 2.1 % (0.0-3.0); HEMATOCRIT 40.7 % (36.0-47.0); HEMOGLOBIN 12.5 g/dl (12.0-15.5); LYMPH # 1.4 10^3/uL (1.5-5.0); LYMPH % 16.5 % (24.0-44.0); MEAN CORPUSCULAR HEMOGLOBIN 28.5 pg (27.0-33.0); MEAN CORPUSCULAR HGB CONC 30.7 g/dl (32.0-36.5); MEAN CORPUSCULAR VOLUME 92.9 fl (80.0-96.0); MONO # 0.7 10^3/uL (0.0-0.8); MONO % 7.9 % (2.0-8.0); NEUTROPHILS # 6.2 10^3/uL (1.5-8.5); NEUTROPHILS % 72.7 % (36.0-66.0); PLATELET COUNT, AUTOMATED 243 10^3/uL (150-450); RED BLOOD COUNT 4.38 10^6/uL (4.00-5.40); WHITE BLOOD COUNT 8.5 10^3/uL (4.0-10.0)
[2024-12-07 13:07] LABS: C REACTIVE PROTEIN QUANTITATIV 1.25 MG/DL (<1.0)
[2024-12-07 13:08] LABS: ALBUMIN 3.6 G/DL (3.2-5.2); ALKALINE PHOSPHATASE 77 U/L (35-104); ALT/SGPT 35 U/L (7.0-40); AST/SGOT 17 U/L (<34); BILIRUBIN,TOTAL 0.3 MG/DL (0.3-1.2); BLOOD UREA NITROGEN 23 MG/DL (9-23); CALCIUM LEVEL 9.7 MG/DL (8.3-10.6); CARBON DIOXIDE LEVEL 31 MMOL/L (20-31); CHLORIDE LEVEL 106 MMOL/L (98-107); CREATININE FOR GFR 0.93 MG/DL (0.55-1.30); GLOMERULAR FILTRATION RATE > 60.0 (>39); GLUCOSE, FASTING 99 MG/DL (74-106); POTASSIUM SERUM 3.8 MMOL/L (3.5-5.1); SODIUM LEVEL 141 MMOL/L (136-145)
[2024-12-07 13:15] LABS: ERYTHROCYTE SEDIMENTATION RATE 29 mm/hr (0-30)
== END ==
LOC: M WUC 09:41
PROVIDERS: ATTEND Internal Medicine Rheumatology
DX: L40.8 Other psoriasis (principal)

== ENCOUNTER → 2025-01-11 | Outpatient (CLI) | payer BC | LOC: M WHC 07:58 | PROVIDERS: ATTEND Nurse Practitioner Adult Health | DX: Z12.31 Encounter for screening mammogram for malignant neoplasm of breast (principal); Z85.3 Personal history of malignant neoplasm of breast | CPT/HCPCS: 77066; G0279 ==

== ENCOUNTER → 2025-01-23 | Outpatient (CLI) | payer BC ==
[2025-01-23 13:16] LABS: ALBUMIN 3.6 G/DL (3.2-5.2); ALKALINE PHOSPHATASE 79 U/L (35-104); ALT/SGPT 18 U/L (7.0-40); AST/SGOT 11 U/L (<34); BILIRUBIN,TOTAL 0.4 MG/DL (0.3-1.2); BLOOD UREA NITROGEN 20 MG/DL (9-23); CALCIUM LEVEL 9.2 MG/DL (8.3-10.6); CARBON DIOXIDE LEVEL 31 MMOL/L (20-31); CHLORIDE LEVEL 103 MMOL/L (98-107); CHOLESTEROL LEVEL 197 MG/DL (<200); CHOLESTEROL RISK RATIO 3.36 (<5); CREATININE FOR GFR 0.88 MG/DL (0.55-1.30); FREE T4 1.44 NG/DL (0.89-1.76); GLOMERULAR FILTRATION RATE > 60.0 (>39); GLUCOSE, FASTING 91 MG/DL (74-106); HDL CHOLESTEROL 58.6 MG/DL (>40); LDL CHOLESTEROL 116.8 MG/DL (<100); NON-HDL-C 138.4 MG/DL; POTASSIUM SERUM 4.4 MMOL/L (3.5-5.1); SODIUM LEVEL 143 MMOL/L (136-145); THYROID STIMULATING HORMONE 0.939 uIU/ML (0.55-4.78); TOTAL 25(OH) VITAMIN D 123.1 NG/ML (20.0-100.0); TOTAL PROTEIN 6.8 G/DL (5.7-8.2); TRIGLYCERIDES LEVEL 108 MG/DL (<150)
[2025-01-23 13:36] LABS: HEMOGLOBIN A1c 6.1 % (4.0-6.0)
== END ==
LOC: M WUC 08:12
PROVIDERS: ATTEND Nurse Practitioner Adult Health
DX: E11.9 Type 2 diabetes mellitus without complications (principal); E55.9 Vitamin D deficiency, unspecified; E03.9 Hypothyroidism, unspecified; M1A.0720 Idiopathic chronic gout, left ankle and foot, without tophus (tophi); E78.2 Mixed hyperlipidemia; M05.79 Rheumatoid arthritis with rheumatoid factor of multiple sites without organ or systems involvement; R76.8 Other specified abnormal immunological findings in serum

== ENCOUNTER → 2025-03-02 | Outpatient (CLI) | payer BC ==
[2025-03-02 13:35] LABS: FREE T4 1.08 NG/DL (0.89-1.76)
[2025-03-02 13:59] LABS: THYROID STIMULATING HORMONE 1.896 uIU/ML (0.55-4.78)
== END ==
LOC: M WUC 10:29
PROVIDERS: ATTEND Nurse Practitioner Adult Health
DX: E03.9 Hypothyroidism, unspecified (principal)

== ENCOUNTER → 2025-03-02 | Outpatient (CLI) | payer BC ==
[2025-03-02 12:45] LABS: BASO # 0.1 10^3/uL (0.0-0.2); BASO % 0.6 % (0.0-1.0); EOS # 0.2 10^3/uL (0.0-0.5); EOS % 2.3 % (0.0-3.0); HEMATOCRIT 42.5 % (36.0-47.0); HEMOGLOBIN 13.2 g/dl (12.0-15.5); LYMPH # 1.7 10^3/uL (1.5-5.0); LYMPH % 20.2 % (24.0-44.0); MEAN CORPUSCULAR HEMOGLOBIN 28.3 pg (27.0-33.0); MEAN CORPUSCULAR HGB CONC 31.1 g/dl (32.0-36.5); MONO # 0.6 10^3/uL (0.0-0.8); MONO % 6.8 % (2.0-8.0); NEUTROPHILS # 5.8 10^3/uL (1.5-8.5); NEUTROPHILS % 69.6 % (36.0-66.0); PLATELET COUNT, AUTOMATED 265 10^3/uL (150-450); RED BLOOD COUNT 4.67 10^6/uL (4.00-5.40); WHITE BLOOD COUNT 8.3 10^3/uL (4.0-10.0)
[2025-03-02 12:59] LABS: ERYTHROCYTE SEDIMENTATION RATE 33 mm/hr (0-30)
[2025-03-02 13:19] LABS: ALBUMIN 3.4 G/DL (3.2-5.2); BILIRUBIN,TOTAL 0.2 MG/DL (0.3-1.2); C REACTIVE PROTEIN QUANTITATIV 1.16 MG/DL (<1.0); CALCIUM LEVEL 8.8 MG/DL (8.3-10.6); CREATININE FOR GFR 0.78 MG/DL (0.55-1.30); GLOMERULAR FILTRATION RATE 79.7 (>39); TOTAL PROTEIN 6.5 G/DL (5.7-8.2)
== END ==
LOC: M WUC 10:30
PROVIDERS: ATTEND Internal Medicine Rheumatology
DX: M05.79 Rheumatoid arthritis with rheumatoid factor of multiple sites without organ or systems involvement (principal); R76.8 Other specified abnormal immunological findings in serum; L40.8 Other psoriasis

== ENCOUNTER 2025-07-10 07:25 | Day surgery (SDC) | payer BC ==
[~2025-07-10] VITALS: Ht 162.6 cm; Wt 99.3 kg
[~2025-07-10 07:25] MED LIST changes: +CEFUROXIME 1 MG/0.1 ML INTRACAMERAL INJ As Ordered ONE; +LIDOCAINE 1% SDV 5 ML VIAL As Ordered ONE; +LR 1,000 ML IV SCH; +MIDAZOLAM INJ 2 MG/2 ML VIAL As Ordered ONE; -RA T500C2 PO; +TURM500C10 PO
[2025-07-10] MEDS: CYCLOPENTOLATE 1% OPHTH SOLN 2 ML BTL OD SCH (08:55)
[2025-07-10] MEDS: FLURBIPROFEN 0.03% OPHTH SOLN 2.5 ML OD SCH (08:55)
[2025-07-10] MEDS: TETRACAINE 0.5% OPHTH SOLN 4ML OD SCH (08:55)
[2025-07-10] MEDS: PHENYLEPHRINE 2.5% OPHTH SOL 2ML OD SCH (08:55)
[2025-07-10 10:00] VITALS: BP 155/63; TEMP 98.8; O2SAT 94
== END 2025-07-10 10:21 | disposition home or self-care (01) ==
LOC: M SDC 07:25
PROVIDERS: ATTEND Ophthalmology
DX: H25.11 Age-related nuclear cataract, right eye (principal); E03.9 Hypothyroidism, unspecified; I10 Essential (primary) hypertension; K21.9 Gastro-esophageal reflux disease without esophagitis; Z86.73 Personal history of transient ischemic attack (TIA), and cerebral infarction without residual deficits; Z85.3 Personal history of malignant neoplasm of breast; Z79.899 Other long term (current) drug therapy; Z79.82 Long term (current) use of aspirin; Z79.890 Hormone replacement therapy; Z88.0 Allergy status to penicillin; Z92.3 Personal history of irradiation
CPT/HCPCS: 66984; J0697; J2250; J3010; V2632

== ENCOUNTER → 2025-08-04 | Outpatient (CLI) | payer BC ==
[~2025-08-04] MED LIST changes: -CEFUROXIME 1 MG/0.1 ML INTRACAMERAL INJ As Ordered ONE; -LIDOCAINE 1% SDV 5 ML VIAL As Ordered ONE; -LR 1,000 ML IV SCH; -MIDAZOLAM INJ 2 MG/2 ML VIAL As Ordered ONE
[2025-08-04 14:00] LABS: ESTIMATED AVERAGE GLUCOSE 134.0 MG/DL (60-110)
== END ==
LOC: M WUC 08:30
PROVIDERS: ATTEND Nurse Practitioner Adult Health
DX: I10 Essential (primary) hypertension (principal); E55.9 Vitamin D deficiency, unspecified; E11.9 Type 2 diabetes mellitus without complications; E03.9 Hypothyroidism, unspecified; M1A.0720 Idiopathic chronic gout, left ankle and foot, without tophus (tophi); M05.79 Rheumatoid arthritis with rheumatoid factor of multiple sites without organ or systems involvement; R76.8 Other specified abnormal immunological findings in serum; L40.8 Other psoriasis

== ENCOUNTER → 2025-08-04 | Outpatient (CLI) | payer BC ==
[2025-08-04 13:18] LABS: BASO # 0.0 10^3/uL (0.0-0.2); BASO % 0.5 % (0.0-1.0); EOS # 0.2 10^3/uL (0.0-0.5); EOS % 3.1 % (0.0-3.0); LYMPH # 1.4 10^3/uL (1.5-5.0); LYMPH % 21.2 % (24.0-44.0); MONO # 0.5 10^3/uL (0.0-0.8); MONO % 7.7 % (2.0-8.0); NEUTROPHILS # 4.3 10^3/uL (1.5-8.5); NEUTROPHILS % 67.2 % (36.0-66.0); PLATELET COUNT, AUTOMATED 282 10^3/uL (150-450)
[2025-08-04 13:20] LABS: C REACTIVE PROTEIN QUANTITATIV 0.85 MG/DL (<1.0)
[2025-08-04 13:22] LABS: ALT/SGPT 27.0 U/L (7.0-40); AST/SGOT 18.0 U/L (<34); CALCIUM LEVEL 9.4 MG/DL (8.3-10.6); CARBON DIOXIDE LEVEL 32.0 MMOL/L (20-31); CHLORIDE LEVEL 104.0 MMOL/L (98-107); CREATININE FOR GFR 0.95 MG/DL (0.55-1.30); GLOMERULAR FILTRATION RATE 62.5 (>39); POTASSIUM SERUM 4.2 MMOL/L (3.5-5.1); SODIUM LEVEL 144.0 MMOL/L (136-145)
[2025-08-04 13:33] LABS: ERYTHROCYTE SEDIMENTATION RATE 33 mm/hr (0-30)
== END ==
LOC: M WUC 08:32
PROVIDERS: ATTEND Internal Medicine Rheumatology
DX: M1A.0720 Idiopathic chronic gout, left ankle and foot, without tophus (tophi) (principal); M05.79 Rheumatoid arthritis with rheumatoid factor of multiple sites without organ or systems involvement; R76.8 Other specified abnormal immunological findings in serum; L40.8 Other psoriasis

== ENCOUNTER → 2025-08-25 | Outpatient (CLI) | payer BC | LOC: M SOG 07:20 | PROVIDERS: ATTEND Neuromusculoskeletal Medicine, Sports Medicine | DX: M25.551 Pain in right hip (principal) ==

== ENCOUNTER → 2025-09-13 | Outpatient (CLI) | payer BC ==
[~2025-09-13] MED LIST changes: +LEVO88TA3 PO; -OMEP40CA5; +OMEP40CA5 PO; +TIMO0.5S20
== END ==
LOC: M ONCR 08:52
PROVIDERS: ATTEND General Practice
DX: Z08 Encounter for follow-up examination after completed treatment for malignant neoplasm (principal); Z85.3 Personal history of malignant neoplasm of breast; Z92.21 Personal history of antineoplastic chemotherapy; Z92.3 Personal history of irradiation; Z88.0 Allergy status to penicillin; Z88.1 Allergy status to other antibiotic agents; Z91.030 Bee allergy status; Z79.01 Long term (current) use of anticoagulants; Z79.620 Long term (current) use of immunosuppressive biologic; Z79.82 Long term (current) use of aspirin; Z79.84 Long term (current) use of oral hypoglycemic drugs; Z79.899 Other long term (current) drug therapy

== ENCOUNTER 2025-09-18 06:09 | Day surgery (SDC) | payer BC ==
[~2025-09-18] VITALS: Ht 162.6 cm; Wt 100.8 kg
[2025-09-18] MEDS ORDERED: MIDAZOLAM INJ 2 MG/2 ML VIAL As Ordered ONE (06:19)
[2025-09-18] MEDS: FLURBIPROFEN 0.03% OPHTH SOLN 2.5 ML OS SCH (06:50)
[2025-09-18] MEDS: TETRACAINE 0.5% OPHTH SOLN 4ML OS SCH (06:50)
[2025-09-18] MEDS: CYCLOPENTOLATE 1% OPHTH SOLN 2 ML BTL OS SCH (06:50)
[2025-09-18] MEDS: PHENYLEPHRINE 2.5% OPHTH SOL 2ML OS SCH (06:50)
[2025-09-18] MEDS ORDERED: LR 1,000 ML IV SCH (07:00)
[2025-09-18] MEDS: LIDOCAINE 1% SDV 5 ML VIAL As Ordered ONE (08:01)
[2025-09-18] MEDS: CEFUROXIME 1 MG/0.1 ML INTRACAMERAL INJ As Ordered ONE (08:01)
[2025-09-18 08:15] VITALS: BP 158/67; TEMP 97.1; O2SAT 96
== END 2025-09-18 08:26 | disposition home or self-care (01) ==
LOC: M SDC 06:09
PROVIDERS: ATTEND Ophthalmology
DX: E11.36 Type 2 diabetes mellitus with diabetic cataract (principal); H25.12 Age-related nuclear cataract, left eye; I10 Essential (primary) hypertension; E03.9 Hypothyroidism, unspecified; E78.00 Pure hypercholesterolemia, unspecified; K21.9 Gastro-esophageal reflux disease without esophagitis; Z79.82 Long term (current) use of aspirin; Z79.899 Other long term (current) drug therapy; Z79.84 Long term (current) use of oral hypoglycemic drugs; Z79.890 Hormone replacement therapy; Z85.3 Personal history of malignant neoplasm of breast; Z86.73 Personal history of transient ischemic attack (TIA), and cerebral infarction without residual deficits; Z87.891 Personal history of nicotine dependence; Z92.3 Personal history of irradiation; Z92.21 Personal history of antineoplastic chemotherapy; Z88.0 Allergy status to penicillin; Z91.030 Bee allergy status; Z90.49 Acquired absence of other specified parts of digestive tract
CPT/HCPCS: 66984; J0697; J2250; J3010; V2632

== ENCOUNTER → 2025-11-03 | Outpatient (REF) | payer BC | LOC: M SFHCPLAZ 21:05 | PROVIDERS: ATTEND Family Medicine | DX: Z53.9 Procedure and treatment not carried out, unspecified reason (principal) ==

== ENCOUNTER → 2025-11-03 | Outpatient (REF) | payer BC | LOC: M SFHCPLAZ 13:14 | DX: R35.0 Frequency of micturition (principal) ==

== ENCOUNTER → 2025-11-08 | Outpatient (REF) | payer BC ==
[2025-11-08 09:32] LABS: APPEARANCE, URINE CLEAR (CLEAR); BACTERIA, URINE AUTO NEGATIVE (NEGATIVE); BILIRUBIN, URINE AUTO NEGATIVE (NEGATIVE); BLOOD, URINE BLOOD NEGATIVE (NEGATIVE); GLUCOSE, URINE (UA) AUTO NEGATIVE (NEGATIVE); KETONE, URINE AUTO NEGATIVE (NEGATIVE); LEUKOCYTE ESTERASE, URINE AUTO NEGATIVE (NEGATIVE); NITRITE, URINE AUTO NEGATIVE (NEGATIVE); PROTEIN, URINE AUTO NEGATIVE (NEGATIVE); RBC, URINE AUTO 0 /HPF (0-3); SPECIFIC GRAVITY URINE AUTO 1.016 (1.002-1.035); SQUAMOUS EPITHELIAL CELL UR AU 1 /HPF (0-6); UROBILINOGEN, URINE AUTO 0.2 mg/dL (0.0-2.0); WBC, URINE AUTO 2 /HPF (0-3)
[2025-11-08 10:05] LABS: ESTRADIOL 21.8 PG/ML
[2025-11-10 02:02] LABS: DEHYDROEPIANDROSTERONE SULFATE 38 mcg/dL (4-157)
== END ==
LOC: M LAB REF 09:06
DX: L65.9 Nonscarring hair loss, unspecified (principal); R35.0 Frequency of micturition